=== PATIENT | female | born 1975 | race Caucasian/White ===

== ENCOUNTER → 2020-11-16 08:19 | Outpatient (CLI) | payer BC, OTHER, SELFPAY ==
--- NOTE | ~2020-11-16 | US_ITS ---
EXAMINATION: US pelvic complete DATE: 11/16/2020 09:47 INDICATION: Unspecified abdominal pain TECHNIQUE: Multiple transabdominal and endovaginal sonographic images of the pelvis were obtained. COMPARISON: None. FINDINGS: The uterus measures 9.2 x 4.5 x 5.7 cm. The endometrial complex measures 5 mm. The right ov henrietta is not definitely identified. There is a 14.7 x 6.2 x 14.8 cm cystic area of the right adnexa. On some images, there appear to be small peripheral nodules. The left ovary measures 6.6 x 6.3 x 7.2 cm and contains a 6.2 cm cyst. There is normal vascular flow in the left ovary. There is no free fluid in the pelvis. IMPRESSION: 1. Cystic mass of the right adnexa with possible peripheral nodularity which may be benign or maligna nt. Would recommend further evaluation by pelvic MRI without and with contrast. Reviewed, dictated and finalized at location B. IMPRESSION: 1. Cystic mass of the right adnexa with possible peripheral nodularity which ma y be benign or malignant. Would recommend further evaluation by pelvic MRI with out and with contrast.
--- NOTE | ~2020-11-16 | US_ITS ---
EXAMINATION: US abdomen complete DATE: 11/16/2020 08:53 INDICATION: Generalized abdominal pain TECHNIQUE: Multiple grayscale and Doppler ultrasound images of the abdomen were obtained. COMPARISON: None available FINDINGS: The head, body, and tail of the pancreas are normal. The liver is normal with normal echoge nicity and echotexture. No surface nodularity. Normal hepatopetal flow in the main portal vein. The g allbladder is normal with no abnormal wall thickening, pericholecystic fluid or stones. The normal co mmon bile duct measures 3 mm. There was no sonographic Burris sign. The visualized portions of the ao rta and inferior vena cava are normal. The right kidney measures 8.5 x 4.2 x 5.3 cm. The left kidney measures 8.9 x 5 x 4.3 cm. The kidneys demonstrate normal parenchymal echogenicity. There is no hydronephrosis. The spleen is normal in appe arance and measures 9.5 cm. IMPRESSION: 1. No sonographic correlate for the patient's symptoms. Reviewed, dictated and finalized at location B.
== END ==
PROVIDERS: PCP Nurse Practitioner Family; Visit Provider Nurse Practitioner Family
DX: R10.9 Unspecified abdominal pain (principal)
CPT/HCPCS: 76700; 76856

== ENCOUNTER 2020-11-21 09:23 | Inpatient (IN) | payer BC, OTHER, SELFPAY ==
[2020-11-21] VITALS (16 sets, daily range): BP systolic 98–143; BP diastolic 53–79; PULSE 51–93; RESP 13–24; TEMP 36.6–37.2; O2SAT 87–100; BMI 22.4
--- NOTE | ~2020-11-21 | US_ITS ---
EXAMINATION: US pelvic complete EXAM DATE: 11/21/2020 12:31 INDICATION: Right pelvic mass and pain. Possible gastritis and colitis on CT earlier same date. TECHNIQUE: Pelvic transabdominal sonogram was performed. There are multiple grayscale and Doppler im ages available for interpretation. Comparison is made to prior examination from 11/16/2020. Correlatio n was made with CT scan earlier same date. FINDINGS: Uterus measures 9.1 x 6.4 x 4.6 cm, and is morphologically normal. Endometrial stripe evan sures 11 mm, within normal limits. There is no free pelvic fluid. There are 2 complex cystic masses in the pelvis again noted, one superior to the uterus measuring 14. 4 x 12.6 x 8.7 cm, and one posterior to the uterus measuring 6.8 x 6.7 [address] scan the large r appear to be arising from the right ovary and the smaller from the left. There are several small no dules identified along the wall of both of these. 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 Technologist believed to confirm color flow within both of these. IMPRESSION: 1. 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 WILLOW ANALYST consult for histologic correlation indicated. 2. Correlate with CT report earlier same date. Reviewed, dictated and finalized at location B. IMPRESSION: 1. Two pelvic cystic masses predominantly anechoic but with small regions of w all nodularity, most consistent with cystic ovarian cancers. WILLOW ANALYST consult for hi stologic correlation indicated. 2. Correlate with CT report earlier same date.
--- NOTE | ~2020-11-21 | CT_ITS ---
EXAMINATION: CT abdomen pelvis w con EXAM DATE: 11/21/2020 10:34 INDICATION: Right lower quadrant pain, history ovarian cystic lesion, abnormal pelvic sonogram. TECHNIQUE: Spiral CT of the abdomen and pelvis was performed following intravenous injection of 100 m L Omnipaque 350. Axial, coronal and sagittal images of the abdomen and pelvis were reviewed. The do se-length product (DLP) for this examination was 232.25 mGy-cm. The exposure was tailored according to patient size (auto mA exposure control), and iterative reconstruction (ASIR) was used as additiona l dose reduction technique. Correlation is made to ultrasound on 11/16. FINDINGS: There are 2 cystic regions in the pelvis, largest appears to be arising from the right ovar y, extends into the abdomen, measuring 13 x 9 x 15 cm. Appears thin-walled by CT, but may have some s mall nodularity posteriorly. There is another mass which appears to be arising from the left ovary lo cated posteriorly, containing more proteinaceous fluid and measuring 8 x 7 x 6 cm. Differential diagn osis includes benign or malignant cystic ovarian neoplasms, endometriomas. No fat or calcium to sugge st teratoma. Histologic correlation is indicated. No evidence of lymphadenopathy or metastatic diseas e. The liver, spleen, adrenal glands and pancreas are unremarkable. Gallbladder is unremarkable. No bi liary obstruction. Portal and splenic veins are patent. Kidneys enhance symmetrically. There is no hydronephrosis. The bladder is unremarkable. There are no findings to suggest appendicitis. There is small sliding gastroesophageal hiatal hernia . Gastric antral wall appears edematous, could be phasic but gastritis also possible. Mildly edemato us appearing transverse colon, but also was not distended. Possible mild colitis. No free intraperi toneal gas. The heart is normal in size. There are no pericardial or pleural effusions. The lung bases are unremarkable. Mild thoracolumbar levoscoliosis IMPRESSION: 1. 2 pelvic cystic masses, most likely benign or malignant ovarian neoplasms. No lymphadenopathy or metastatic disease. Recommend histologic correlation. 2. Possible gastritis and transverse colonic colitis. Any acute symptoms? 3. Small hiatal hernia. Reviewed, dictated and finalized at location B.
[2020-11-21 09:48] LABS: Basophils Percent Auto 0.2 % (0.2-1.2); Eosinophils Percent Auto 0.2 % (0-4.4); Hematocrit 38.1 % (37.0-47.0); Immature Granulocyte Absolute 0.03 K/mm3 (0.00-0.031); Immature Granulocyte Percent A 0.3 % (0-0.5); Lymphocytes Absolute Auto 1.79 K/mm3 (0.9-3.2); Mean Corpuscular HGB Conc 34.1 g/dl (32-36); Mean Corpuscular Hemoglobin 30.4 pg (26-34); Mean Corpuscular Volume 89.2 fl (80-100); Mean Platelet Volume 9.7 fl (7.4-10.4); Monocytes Absolute Auto 0.4 K/mm3 (0.1-0.6); Monocytes Percent Auto 3.9 % (2.6-8.5); Neutrophils Absolute Auto 8.3 K/mm3 (1.3-6.7); Neutrophils Percent Auto 78.4 % (45.5-73.1); Platelet Count Result 259 k/mm3 (150-375); Red Blood Count 4.27 M/mm3 (4.2-5.4); Red Cell Distribution Width 11.8 % (11.5-14.5); White Blood Count 10.6 K/mm3 (4.5-10.0)
[2020-11-21] MEDS: ONDANSETRON INJ 4 MG/2 ML VIAL IV PUSH ×2 (09:53→18:52)
[2020-11-21] MEDS: SODIUM CHLORIDE 0.9% IV 1,000 ML 999 ML IV CONT ×2 (09:53→13:49)
[2020-11-21] MEDS: HYDROmorphone HCL INJ (*CRX) 1 MG/ML SYR IV PUSH (09:53)
[2020-11-21] MEDS: FAMOTIDINE 20 MG/2 ML VIAL IV PUSH ×2 (09:54→18:59)
[2020-11-21] MEDS: LORazepam INJ (*CRX) 2 MG/ML VIAL 0.5 MG IV PUSH (09:54)
[2020-11-21 10:01] LABS: Alanine Aminotransferase 15 U/L (4-35); Albumin Level 4.7 g/dL (3.5-5.1); Alkaline Phosphatase 52 U/L (38-126); Anion Gap 13 mmol/L (8-16); Aspartate Amino Transferase 23 U/L (14-36); Bilirubin,Total 1.1 mg/dL (0.2-1.3); Blood Urea Nitrogen 10 mg/dL (7-17); Calcium 9.5 mg/dL (8.4-10.2); Carbon Dioxide 21 mmol/L (22-30); Chloride 103 mmol/L (98-107); Estimated CRCL calculation 69 ml/min; Estimated Glomerular Filt Rate > 60; Glucose 157 mg/dL (65-110); Lipase 67 U/L (23-300); Potassium 3.3 mmol/L (3.4-5.0); Sodium 137 mmol/L (137-145)
[2020-11-21 10:34] LABS: Add Urine Microscopic? YES; Appearance Urine Cloudy (Clear); Bilirubin Urine Negative (Negative); Blood Urine Negative (Negative); Color Urine Yellow (Yellow); Glucose Urine UA Negative (Negative); Ketones Urine 2+ mg/dL (Negative); Leukocyte Esterase Ur 2+ LEU/UL (Negative); Mucus Urine Heavy /lpf; Nitrate Urine Negative (Negative); Protein Urine 1+ mg/dL (Negative); Specific Grav Ur 1.025 (1.001-1.035); Squamous Epithelial Cell Urine Many /hpf (Few); Urobilinogen Urine Negative mg/dL (<2.0); WBC Urine 0-3 /hpf
[2020-11-21] MEDS: MORPHINE SULFATE (*CRX) 4 MG/ML INJ IV PUSH ×2 (10:52→19:03)
[2020-11-21] MEDS: IBUPROFEN IV 800 MG/200 ML 800 MG/200 ML BAG 400 MG IVPB (11:16)
--- NOTE | 2020-11-21 12:00 | ED.GENADULT ---
HPI - General Adult General Chief complaint: Abdominal Pain Stated complaint: ABD PAIN Time Seen by Provider: 11/21/20 09:46 Source: patient, family, RN notes reviewed and old records reviewed Mode of arrival: EMS Limitations: no limitations History of Present Illness HPI narrative: Patient is a 44-year-old female who presents to emergency department for evaluation of right adnexal discomfort that became severe today patient presents noting that she was seen 5 days ago for this had ultrasound showing pelvic mass patient had been doing okay until the pain became more severe today she denies similar occurrence in the past on arrival patient appears uncomfortable she is followed by Dr. Ray. Patient denies any vaginal bleeding discharge urinary bowel symptoms he presents an uncomfortable state has not had anything for pain Related Data Home Medications Medication Instructions Recorded Confirmed No Home Medications 10/18/19 11/21/20 Allergies Allergy/AdvReac Type Severity Reaction Status Date / Time ampicillin Allergy Unknown Rash Verified 11/21/20 13:47 Review of Systems Review of Systems: All systems reviewed & are unremarkable except as noted in HPI and below PMFSH Past Medical History Medical History Miscarriage Pseudophakia of both eyes Surgical History Surgical History History of cryosurgery History of dilation and curettage [place] teeth extracted Family History Family History (Updated 10/18/19 @ 11:38 by Oralia Mason MA) Father Carcinoma of colon Mother Hypertension Grandparent Ovarian cancer Social History Social History Smoking status: Never smoker Alcohol intake: current Drinks per week: 1 Substance use: never Gender identity (if verbalized by the patient): Female Exam Narrative: Exam Narrative: GENERAL: Well-appearing, well-nourished, uncomfortable and in no acute distress. HEAD: Normocephalic, atraumatic. EYES: PERRLA and EOMI. ENT: Nares clear, no rhinorrhea or epistaxis. Mucous membranes moist. CHEST: Clear to auscultation. No respiratory distress. No wheezes rales or rhonchi HEART: Regular rate and rhythm. No murmur heard. Normal peripheral pulses. ABDOMEN: Soft, right adnexal tenderness with voluntary guarding, nondistended EXTREMITIES: Normal range of motion. No edema. SKIN: Warm, dry, no rash. NEURO: No focal deficits. Alert and oriented x3. PSYCH: Normal mood and affect. Course Consultations Consultation #1: Discussed case with Dr. Lozano on-call electrical and instrumentation manager who will review the case Dr. Bird called back and notes she will admit the patient with planned surgery tomorrow Date: 11/21/20 Vital Signs Vital signs: Vital Signs Temperature 98.0 F 11/21/20 09:28 Pulse Rate 57 L 11/21/20 09:28 Respiratory Rate 18 11/21/20 09:28 Blood Pressure 99/66 L 11/21/20 09:28 Pulse Oximetry 100 11/21/20 09:28 Temperature 98.0 F 11/21/20 09:28 Pulse Rate 60 11/21/20 14:16 Respiratory Rate 18 11/21/20 14:16 Blood Pressure 128/79 11/21/20 14:16 Pulse Oximetry 100 11/21/20 14:16 Medical Decision Making MDM Narrative Medical decision making narrative: Patient evaluated the emergency department found to have ovarian masses gynecology was consulted patient is required large amounts of narcotic pain medication she is hemodynamically stable ABCs and vital signs intact. Patient aware of her findings treatment plan diagnosis and consultation. Vital Signs Vital Signs: Vital Signs Temperature 98.0 F 11/21/20 09:28 Pulse Rate 57 L 11/21/20 09:28 Respiratory Rate 18 11/21/20 09:28 Blood Pressure 99/66 L 11/21/20 09:28 Pulse Oximetry 100 11/21/20 09:28 Temperature 98.0 F 11/21/20 09:28 Pulse Rate 60 11/21/20 14:16 Respiratory Rate 18 07
[2020-11-21] MEDS: diazePAM INJ (*CRX) 10 MG/2 ML SYRINGE 5 MG IV PUSH (13:24)
--- NOTE | 2020-11-21 13:33 | PC.NURSE ---
Pt placed on 2 L NC O2 due to O2 sat 75% room air. Pt repositioned and instructed to breathe in through nose and out of mouth. O2 now 100%
--- NOTE | 2020-11-21 16:50 | WPDANESEPP ---
Anes - Eval Pre Procedure Procedure: Operation Date: 11/22/20 14:00 Proposed Procedures p Exploratory Laparotomy,Removal Of Adnexal Masses - Homer Bird MD Date/Time: 11/21/20 16:50 Pre Op Diagnosis: ABD PAIN Patient Data Age: 44 Gender: F Height: 1.63 m Weight: 59 kg Last Vital Signs Temp 98.0 F 11/21/20 09:28 Pulse 53 L 11/21/20 16:18 Resp 20 11/21/20 16:18 BP 128/64 11/21/20 16:18 Pulse Ox 100 11/21/20 16:18 Allergies Allergy/AdvReac Type Severity Reaction Status Date / Time ampicillin Allergy Unknown Rash Verified 11/21/20 13:47 Home Medications Medication Instructions Recorded Confirmed Type No Home Medications 10/18/19 11/21/20 History Laboratory Tests 11/21/20 11/21/20 11/21/20 09:40 09:40 10:16 WBC 10.6 K/mm3 H K/mm3 (4.5-10.0) RBC 4.27 M/mm3 M/mm3 (4.2-5.4) Hgb 13.0 g/dL g/dL (12.0-15.0) Hct 38.1 % % (37.0-47.0) MCV 89.2 fl fl (80-100) MCH 30.4 pg pg (26-34) MCHC 34.1 g/dl g/dl (32-36) RDW 11.8 % % (11.5-14.5) Plt Count 259 k/mm3 k/mm3 (150-375) MPV 9.7 fl fl (7.4-10.4) Immature Gran % (Auto) 0.3 % % (0-0.5) Neut % (Auto) 78.4 % H % (45.5-73.1) Lymph % (Auto) 17.0 % L % (18.3-44.2) [place] % (Auto) 3.9 % % (2.6-8.5) Eos % (Auto) 0.2 % % (0-4.4) Baso % (Auto) 0.2 % % (0.2-1.2) Lymph # (Auto) 1.79 K/mm3 K/mm3 (0.9-3.2) [place] # (Auto) 0.4 K/mm3 K/mm3 (0.1-0.6) Eos # (Auto) 0.0 K/mm3 K/mm3 (0-0.3) Baso # (Auto) 0.0 K/mm3 K/mm3 (0.0-0.1) Abs Immat Gran (auto) 0.03 K/mm3 K/mm3 (0.00-0.031) Absolute Neuts (auto) 8.3 K/mm3 H K/mm3 (1.3-6.7) Absolute Nucleated RBC 0.0 K/mm3 K/mm3 (0.0-0.012) Nucleated RBC % 0.0 % % (0.0-0.2) Sodium 137 mmol/L mmol/L (137-145) Potassium 3.3 mmol/L L mmol/L (3.4-5.0) Chloride 103 mmol/L mmol/L (98-107) Carbon Dioxide 21 mmol/L L mmol/L (22-30) Anion Gap 13 mmol/L mmol/L (8-16) BUN 10 mg/dL mg/dL (7-17) Creatinine 0.80 mg/dL mg/dL (0.7-1.0) Estim Creat Clear Calc 69 ml/min ml/min Estimated GFR > 60 (59 - ) Glucose 157 mg/dL H mg/dL (65-110) Calcium 9.5 mg/dL mg/dL (8.4-10.2) Total Bilirubin 1.1 mg/dL mg/dL (0.2-1.3) AST 23 U/L U/L (14-36) ALT 15 U/L U/L (4-35) Alkaline Phosphatase 52 U/L U/L (38-126) Total Protein 7.0 g/dL g/dL (6.3-8.2) Albumin 4.7 g/dL g/dL (3.5-5.1) Lipase 67 U/L U/L (23-300) Urine Color Yellow (Yellow) Urine Appearance Cloudy H (Clear) Urine pH 6.0 (5.0-9.0) Ur Specific [place] 1.025 (1.001-1.035) Urine Protein 1+ mg/dL H mg/dL (Negative) Urine Glucose (UA) Negative mg/dL mg/dL (Negative) Urine Ketones 2+ mg/dL H mg/dL (Negative) Ur Blood (Man) Negative (Negative) Urine Nitrate Negative (Negative) Urine Bilirubin Negative (Negative) Urine Urobilinogen Negative mg/dL mg/dL (<2.0) Leukocyte Esterase Rfl 2+ SPEEDY/UL H SPEEDY/UL (Negative) Urine RBC 3-5 /hpf H /hpf (0-2) Urine WBC 0-3 /hpf /hpf Ur Squamous Epith Cells Many /hpf H /hpf (Few) Urine Mucus Heavy /lpf H /lpf Patient hx anesthesia problems: none Family hx anesthesia problems: none [facility] Past Medical History Medical History Mass of left ovary Mass of right ovary Miscarriage Pseudophakia of both eyes Surgical History Surgical History History of cryosurgery History of dila
--- NOTE | 2020-11-21 18:15 | ADMGEN ---
This patient, Wanda Castro, was admitted to OB 2nd Floor Room 279-00. Patient/family oriented to hospital policies and general routines including ID bracelet, bed and alarms, visiting hours, pain management, procedures, bathroom and other care routines, personal items, smoking policy, room service/diet, and visiting hours. Information on how to activate the Rapid Response Team has been discussed. Patient/Family are encouraged to report perceived risks to care and to ask questions if they do not understand what they are told or what they should do.
[2020-11-21] MEDS: LACTATED RINGERS 1,000 ML 125 ML IV CONT (19:00)
[2020-11-21] MEDS: KETOROLAC 30 MG/ML VIAL (*BKC) IV PUSH (19:13)
[2020-11-21] MEDS: LORazepam INJ (*CRX) 2 MG/ML VIAL 1 MG IV PUSH (19:24)
--- NOTE | 2020-11-21 20:20 | PM.IMHP ---
H&P: HPI History of Present Illness Date/Time: 11/21/20 20:20 Patient presented to ED with complaints of severe abdominal pain. She had a previous abdominal and pelvic ultrasound on November 16. The pelvic ultrasound showed a 14 cm complex right adnexal mass and a 6 cm left ovarian cyst. No concerning lymphadenopathy or other abnormal masses. She states that pain became severe and sharp today. She felt like she felt something move earlier today and then severe pain. There was no sign of torsion on imaging today. In the ED she required large amount of pain medication to help her pain. She also had nausea today. She was evaluated in the ED and had diffuse abdominal tenderness adn fullness in lower abdomen. She was informed of the possible etiologies of the bilateral ovarian cysts to include malignancy and due the concern for that being a possibility then she would usually be referred to a prop and effects designer oncologist for the surgery. I attempted to contact prop and effects designer oncologist group at [facility] to determine if they could get her in sooner for evaluation but due to patient's discomfort and no response then informed her that her option would be to perform the exploratory laparotomy and removal of cysts and if the pathology does show malignancy then she would need further evaluation by prop and effects designer onocologist and or subsequent further surgery. She agreed to being admitted and performing the laparotomy and removal of adnexal cyst, possibly needing to remove both ovaries which would render her menopausal. Her questions were answered. Chief Complaint: Abdominal pain Review of Systems Review of Systems: All systems reviewed & are unremarkable except as noted in HPI and below Cardiovascular: Cardiovascular: Reports no additional cardiovascular complaints, Denies chest pain and Denies dyspnea Respiratory: Respiratory: Reports no additional respiratory complaints and Denies dyspnea Gastrointestinal: Gastrointestinal: Reports abdominal pain, Denies change in bowel habits, Denies diarrhea and Reports nausea Genitourinary: Genitourinary: Reports pelvic pain Musculoskeletal: Musculoskeletal: Reports back pain Integumentary/Breasts: Skin/Breast: Reports system reviewed and no additional complaints, except as docu Neurologic: Reports system reviewed and no additional complaints, except as documented PMF Past Medical History Medical History Mass of left ovary Mass of right ovary Miscarriage Pseudophakia of both eyes Surgical History Surgical History History of cryosurgery History of dilation and curettage [place] teeth extracted Family History Family History (Updated 11/21/20 @ 19:41 by Christy Ochoa RN) Father Carcinoma of colon Mother Hypertension History of blood clots Grandparent Ovarian cancer Social History Social History Smoking status: Never smoker Alcohol intake: current Drinks per week: 1 Substance use: never Gender identity (if verbalized by the patient): Female Spiritual care concerns: No Meds Home Medications and Allergies Home Medications Medication Instructions Recorded Confirmed Type [id number] K 1 tablet PO DAILY 11/21/20 11/21/20 History [Adults Multivitamin] Allergies Allergy/AdvReac Type Severity Reaction Status Date / Time ampicillin Allergy Unknown Rash Verified 11/21/20 13:47 Vital Signs Vital Signs - 24 hr 11/21/20 09:28 11/21/20 09:58 11/21/20 11:13 Temperature 98.0 F Pulse Rate 57 L 63 59 L Respiratory Rate 18 15 18 Blood Pressure 99/66 L 124/73 124/68 Pulse Oximetry 100 100 97 11/21/20 12:31 11/21/20 13:34 11/21/20 14:02 Temperature Pulse Rate 93 51 L 63 Respiratory Rate 15 13 20 Blood Pressure 103/61 140/76 126/76 Pulse Oximetry 100 100 11/21/20 14:12 11/21/20 14:16 11/21/20 15:45 Temperature P
[2020-11-22] VITALS (15 sets, daily range): BP systolic 98–127; BP diastolic 50–69; PULSE 60–93; RESP 10–18; TEMP 36.6–37.7; O2SAT 96–100
[2020-11-22] MEDS: MORPHINE SULFATE (*CRX) 4 MG/ML INJ IV PUSH (00:13)
[2020-11-22] MEDS: LACTATED RINGERS 1,000 ML 125 ML IV CONT ×2 (00:14→09:09)
[2020-11-22 05:09] LABS: Basophils Percent Auto 0.1 % (0.2-1.2); Eosinophils Percent Auto 0.3 % (0-4.4); Hematocrit 29.7 % (37.0-47.0); Hemoglobin 10.1 g/dL (12.0-15.0); Immature Granulocyte Absolute 0.03 K/mm3 (0.00-0.031); Immature Granulocyte Percent A 0.3 % (0-0.5); Lymphocytes Absolute Auto 2.12 K/mm3 (0.9-3.2); Lymphocytes Percent Auto 21.5 % (18.3-44.2); Mean Corpuscular Hemoglobin 30.4 pg (26-34); Mean Corpuscular Volume 89.5 fl (80-100); Monocytes Absolute Auto 0.8 K/mm3 (0.1-0.6); Monocytes Percent Auto 7.7 % (2.6-8.5); Neutrophils Absolute Auto 6.9 K/mm3 (1.3-6.7); Neutrophils Percent Auto 70.1 % (45.5-73.1); Platelet Count Result 210 k/mm3 (150-375); Red Blood Count 3.32 M/mm3 (4.2-5.4); Red Cell Distribution Width 11.9 % (11.5-14.5); White Blood Count 9.9 K/mm3 (4.5-10.0)
[2020-11-22 05:28] LABS: Alanine Aminotransferase 11 U/L (4-35); Albumin Level 3.4 g/dL (3.5-5.1); Alkaline Phosphatase 34 U/L (38-126); Anion Gap 6 mmol/L (8-16); Aspartate Amino Transferase 17 U/L (14-36); Bilirubin,Total 0.9 mg/dL (0.2-1.3); Blood Urea Nitrogen 4 mg/dL (7-17); Calcium 8.4 mg/dL (8.4-10.2); Carbon Dioxide 22 mmol/L (22-30); Chloride 108 mmol/L (98-107); Estimated CRCL calculation 78 ml/min; Estimated Glomerular Filt Rate > 60; Glucose 89 mg/dL (65-110); Potassium 3.5 mmol/L (3.4-5.0); Sodium 136 mmol/L (137-145)
[2020-11-22 06:28] LABS: Beta HCG Quantitative < 2.39 mIU/ML
--- NOTE | 2020-11-22 08:00 | PC.NURSE ---
PT introductions made and plan of care discussed per pre op aircraft engine specialist surgery, pain management, NPO, daily care activities. PT verbalized understanding. PT recipient of such instructions and no barriers to learning identified. PT received instructions per one to one discussion and demonstration through out the shift.
--- NOTE | 2020-11-22 08:32 | PM.GYNPNOP ---
GENERAL INTERNIST AND PHYSICIAN LEADER - A/P Assessment and plan (1) Bilateral ovarian cysts: Code(s): N83.201 - Unspecified ovarian cyst, right side; N83.202 - Unspecified ovarian cyst, left side Status: Acute Assessment and Plan: Plan to proceed with ovarian/adnexal cyst removal today. Procedure explained to her again. Questions answered. Postoperative Procedures: Procedures Operation Date: 11/22/20 14:00 <No data on this case meets the specified criteria> Time Spent With Patient Time: Total time spent is greater than 50% in coordination of care (as documented) at patient's floor/unit and/or counseling patient: Time with patient: less than 15 minutes GENERAL INTERNIST AND PHYSICIAN LEADER- PN:Subj Post-Op Subjective Date/time seen: 11/22/20 08:32 She states pain and nausea improved with medication. Exam Const: General: no acute distress Eyes: General: appearance normal, both eyes and all related structures Resp: Effort & Inspection: normal respiratory effort Auscultation: clear to auscultation bilaterally Cardio: Rate: regular rate Rhythm: regular rhythm GI: Other: mass palpated 6cm above umbilicus mobile, mild tenderness, no guarding no rebound Skin: General skin exam: normal color Extrem: General: normal to inspection GENERAL INTERNIST AND PHYSICIAN LEADER - PN: Obj Data Vital Signs Vital Signs: Vital Signs - 24 hr 11/21/20 09:28 11/21/20 09:58 11/21/20 11:13 Temperature 98.0 F Pulse Rate 57 L 63 59 L Respiratory Rate 18 15 18 Blood Pressure 99/66 L 124/73 124/68 Pulse Oximetry 100 100 97 11/21/20 12:31 11/21/20 13:34 11/21/20 14:02 Temperature Pulse Rate 93 51 L 63 Respiratory Rate 15 13 20 Blood Pressure 103/61 140/76 126/76 Pulse Oximetry 100 100 11/21/20 14:12 11/21/20 14:16 11/21/20 15:45 Temperature Pulse Rate 64 60 56 L Respiratory Rate 19 18 19 Blood Pressure 115/72 128/79 125/70 Pulse Oximetry 100 100 100 11/21/20 16:18 11/21/20 18:06 11/21/20 18:30 Temperature 97.8 F 98.0 F Pulse Rate 53 L 57 L 67 Respiratory Rate 20 18 18 Blood Pressure 128/64 143/67 H 114/54 L Pulse Oximetry 100 99 99 11/21/20 18:45 11/21/20 20:00 11/21/20 20:30 Temperature Pulse Rate Respiratory Rate 24 H 24 H Blood Pressure Pulse Oximetry 99 87 L 100 11/21/20 23:15 11/22/20 00:10 11/22/20 03:32 Temperature 98.9 F 98.9 F Pulse Rate 75 60 72 Respiratory Rate 18 18 16 Blood Pressure 98/53 L 110/57 L 98/56 L Pulse Oximetry 98 Intake/Output Intake/Output: Intake & Output 11/19/20 11/20/20 11/21/20 11/22/20 23:59 23:59 23:59 23:59 Intake Total 2400 1390 Output Total 1150 Balance 2400 240 Meds/Results Medications: Active Medications Generic Name Dose Route Start Last Admin Trade Name Freq PRN Reason Stop Dose Admin Famotidine 20 mg 11/21/20 21:00 11/21/20 18:59 Famotidine 20 Mg/2 Ml Vial IV PUSH 20 mg Q12HR PIPO Administration Acetaminophen 1,000 mg in 100 mls @ 400 mls/hr 11/21/20 15:23 11/22/20 03:39 Ofirmev 1,000 Mg Ivpb IVPB 11/22/20 15:24 Infused Q6H PRN Infusion Mild Pain (1-3) or Fever Lactated Ringer's 1,000 mls @ 125 mls/hr 11/21/20 15:25 11/22/20 00:14 Lr - Lactated Ringers Iv IV CONT 125 mls/hr .Q8H PIPO Administration Lorazepam 1 mg 11/21/20 21:00 11/21/20 19:24 Lorazepam Inj (*Crx) 2 Mg/Ml Vial IV PUSH 1 mg BID PRN Administration Anxiety Morphine Sulfate 4 mg 11/21/20 15:23 11/22/20 00:13 Morphine Sulfate (*Crx) 4 Mg/Ml Inj IV PUSH 4 mg Q2H PRN Administration Pain Rated 7-10 Ondansetron HCl 4 mg 11/21/20 15:23 11/21/20 18:52 Ondansetron Inj 4 Mg/2 Ml Vial IV PUSH 4 mg Q4H PRN Administration Nausea Radiology Results: ITS Impressions Abdomen/Pelvis CT 11/21/20 10:35 IMPRESSION: 1. 2 pelvic cystic masses, most likely benign or malignant ovarian neoplasms. No lymphadenopathy or metastatic disease. Recommend histologic correlation. 2. Possible gastritis and transverse colonic colitis. Any acute symptoms? 3. S
[2020-11-22] MEDS: FAMOTIDINE 20 MG/2 ML VIAL IV PUSH ×2 (09:56→20:59)
--- NOTE | 2020-11-22 12:35 | PC.NURSE ---
PT taken to OR via bed accompanied by preop nurses. PT alert and awake and oriented to surroundings. SBAR faxed to preop. will be sent over shortly when he returns to unit.
[2020-11-22] MEDS: LACTATED RINGERS 1,000 ML 30 ML IV CONT ×2 (13:00→15:38)
--- NOTE | 2020-11-22 13:07 | WPDANESEPPF ---
Anes - Initial Pre Proc Eval Procedure: Operation Date: 11/22/20 14:00 Proposed Procedures p Exploratory Laparotomy,Removal Of Adnexal Masses - Homer Bird MD Date/Time: 11/22/20 13:07 Surgeon: Homer Bird MD Pre Op Diagnosis: ovarian mass Patient Data Age: 44 Gender: F Height: 1.63 m Weight: 59.1 kg Last Vital Signs Temp 37.7 C H 11/22/20 12:00 Pulse 66 11/22/20 12:00 Resp 16 11/22/20 12:00 BP 107/60 11/22/20 12:00 Pulse Ox 100 11/22/20 12:00 Allergies Allergy/AdvReac Type Severity Reaction Status Date / Time ampicillin Allergy Unknown Rash Verified 11/22/20 13:02 Home Medications Medication Instructions Recorded Confirmed Type qbnbqikdqikv-bcd-lewa-FA-vit K 1 tablet PO DAILY 11/21/20 11/21/20 History [Adults Multivitamin] cyanocobalamin (vitamin B-12) 2,000 mcg PO DAILY 11/22/20 11/22/20 History [Vitamin B-12] Laboratory Tests 11/22/20 11/22/20 11/22/20 04:42 04:42 04:42 WBC 9.9 K/mm3 K/mm3 (4.5-10.0) RBC 3.32 M/mm3 L M/mm3 (4.2-5.4) Hgb 10.1 g/dL L g/dL (12.0-15.0) Hct 29.7 % L % (37.0-47.0) MCV 89.5 fl fl (80-100) MCH 30.4 pg pg (26-34) MCHC 34.0 g/dl g/dl (32-36) RDW 11.9 % % (11.5-14.5) Plt Count 210 k/mm3 k/mm3 (150-375) MPV 10.0 fl fl (7.4-10.4) Immature Gran % (Auto) 0.3 % % (0-0.5) Neut % (Auto) 70.1 % % (45.5-73.1) Lymph % (Auto) 21.5 % % (18.3-44.2) O'Brien % (Auto) 7.7 % % (2.6-8.5) Eos % (Auto) 0.3 % % (0-4.4) Baso % (Auto) 0.1 % L % (0.2-1.2) Lymph # (Auto) 2.12 K/mm3 K/mm3 (0.9-3.2) O'Brien # (Auto) 0.8 K/mm3 H K/mm3 (0.1-0.6) Eos # (Auto) 0.0 K/mm3 K/mm3 (0-0.3) Baso # (Auto) 0.0 K/mm3 K/mm3 (0.0-0.1) Abs Immat Gran (auto) 0.03 K/mm3 K/mm3 (0.00-0.031) Absolute Neuts (auto) 6.9 K/mm3 H K/mm3 (1.3-6.7) Absolute Nucleated RBC 0.0 K/mm3 K/mm3 (0.0-0.012) Nucleated RBC % 0.0 % % (0.0-0.2) Sodium Potassium Chloride Carbon Dioxide Anion Gap BUN Creatinine Estim Creat Clear Calc Estimated GFR Glucose Calcium Total Bilirubin AST ALT Alkaline Phosphatase Total Protein Albumin CA 125 Antigen Pending Serum HCG, Qual Cancelled Beta HCG, Quant 11/22/20 04:42 WBC RBC Hgb Hct MCV MCH MCHC RDW Plt Count MPV Immature Gran % (Auto) Neut % (Auto) Lymph % (Auto) O'Brien % (Auto) Eos % (Auto) Baso % (Auto) Lymph # (Auto) O'Brien # (Auto) Eos # (Auto) Baso # (Auto) Abs Immat Gran (auto) Absolute Neuts (auto) Absolute Nucleated RBC Nucleated RBC % Sodium 136 mmol/L L mmol/L (137-145) Potassium 3.5 mmol/L mmol/L (3.4-5.0) Chloride 108 mmol/L H mmol/L (98-107) Carbon Dioxide 22 mmol/L mmol/L (22-30) Anion Gap 6 mmol/L L mmol/L (8-16) BUN 4 mg/dL L D mg/dL (7-17) Creatinine 0.70 mg/dL mg/dL (0.7-1.0) Estim Creat Clear Calc 78 ml/min ml/min Estimated GFR > 60 (59 - ) Glucose 89 mg/dL mg/dL (65-110) Calcium 8.4 mg/dL mg/dL (8.4-10.2) Total Bilirubin 0.9 mg/dL mg/dL (0.2-1.3) AST 17 U/L U/L (14-36) ALT 11 U/L U/L (4-35) Alkaline Phosphatase 34 U/L L U/L (38-126) Total Protein 6.0 g/dL L g/dL (6.3-8.2) Albumin 3.4 g/dL L g/dL (3.5-5.1) CA 125 Antigen Serum HCG, Qual Beta HCG, Quant < 2.39 mIU/ML mIU/ML Patient hx anesthesia problems: none Family hx anesthesia problems:
--- NOTE | 2020-11-22 14:15 | WPDHPUPDATE1 ---
History and Physical Update Update Date/Time: 11/22/20 14:15 History and Physical has been reviewed, including an updated exam of the patient. There are NO changes in the patient's condition. Risks, benefits, and alternatives have been discussed and questions answered. Patient agrees to proceed with procedure.
[2020-11-22] MEDS: CLINDAMYCIN 900 MG/D5W 50 ML 900 MG/50 ML PIGGYBACK 50 MG IVPB (14:40)
[2020-11-22] MEDS: fentaNYL CITRATE INJ (*CRX) 100 MCG/2 ML VIAL 25 MCG IV PUSH ×8 (15:45→17:00)
--- NOTE | 2020-11-22 16:04 | W.PM.PROC2 ---
Procedure Note - Detailed Date of Procedure 11/22/20 Pre-op Diagnosis Bilateral adnexal mass Post-op Diagnosis other (1. Endometriosis) Procedure Performed 1.Exploratory laparotomy 2. Bilateral salpingo oophorectomy with removal of bilateral cyst. Surgeon Homer Bird MD Anesthesia general Indications Patient is a 44-year-old female presented to the emergency department yesterday with acute pain and nausea and imaging showed a 14 cm cyst on the right and a 6 cm cyst on the left suspicion for malignancy. Due to patient's discomfort it was recommended for removal of the adnexal cyst she was informed of the possibility of needing to remove one or both ovaries. She is informed if it does come back as showing cancer that she may need future more invasive procedures. Findings The right ovary which measured approximately 14 cm and fallopian tube were black there was no necrosis. The weight of the right adnexa was 1238 g. The right adnexa was twisted twice. The left ovary was a large cyst that comprised all of the ovarian tissue no ovarian tissue could be palpated. There was some signs of endometriosis on the left ovary and also multiple endometriosis implants on the back of the uterus and cul-de-sac. There was also a smaller cystic area on the outer of the large left ovarian cyst which took of most or all of ovary. Description of Procedure After informed consent was obtained patient was taken to the operating room and general endotracheal anesthesia was administered. She was placed in supine position and prepped and draped in sterile fashion. IV clindamycin was given prior to the procedures start. A Pfannenstiel skin incision was made with the scalpel. The subcutaneous tissue was dissected down bluntly. The fascia was incised in the midline. The fascia was extended bilaterally using Orellana scissors. The fascia was from the rectus muscle superiorly bluntly and with cautery. The fascia inferiorly was dissected from the rectus tissue bluntly and using cautery. The mid line of the abdomen was identified. The peritoneum was grasped with clamps and was entered. The mildly discolored peritoneal fluid which was serosanguineous was suction in a collection syringe and will be sent for histology. A lap was placed inside to retract some of the intestines. The large mass was visualized. The area was palpated and the uterus appeared normal the mass appeared large and dark it was mobile. Was able to mobilize the mass through the incision. Prior to doing this the mass was palpated and noted to be free of any adhesions. Once the mass was mobilized it was seen to be torsed twice around the fallopian tube and ovarian ligament. The right adnexa was then untwisted. The right infundibulopelvic ligament was then clamped and ligated with LigaSure the fallopian tube and ovarian ligament were also clamped and ligated with the LigaSure hemostasis was noted. The specimen was handed off to be sent to pathology. Attention was then turned to the left ovary the left ovary was enlarged approximately 6 cm there was a cyst on the outer part of this cyst there appeared to be some endometriosis on a portion of this left cyst could not identify normal ovarian tissue. There were multiple implants of endometriosis on the posterior uterus and cul-de-sac. There were no adhesions in these areas. Due to the concern of possible malignancy and is since could not identify normal ovarian tissue then the decision was made to remove the left ovary and fallopian tube. The infundibulopelvic ligament on the left side was cauterized and the fallopian tube and ovary were cauterized and ligated with the LigaSure. Hemostasis was noted at the site. The pelvis was irrigated. The pedicles were inspected again and noted to be hemostatic. The laparotomy sponge was removed. the sponge count was correct. The peritoneum was closed with 3 O Vicryl in several [id number] fashion. Th
[2020-11-22] MEDS: ONDANSETRON INJ 4 MG/2 ML VIAL IV PUSH (16:51)
--- NOTE | 2020-11-22 17:35 | PC.NURSE ---
PT returned from PACU via bed accompanied by spouse. PT alert and awake and talking. PT oriented back to her room and surrounding area. 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 PT received such instructions per one to one discussion, and demonstration. PT has no barriers to learning and she and her spouse both recipients of such instructions. Pt verbalized understanding of such care.
[2020-11-22] MEDS: DEXTROSE 5%/0.45% SOD CHL 1,000 ML 125 ML IV CONT (18:10)
[2020-11-22] MEDS: KETOROLAC 30 MG/ML VIAL (*BKC) IV PUSH ×2 (18:11→23:47)
[2020-11-22] MEDS: HYDROcodone/acetaminophen (*CRX) 5-325 MG TABLET 1 TAB PO ×3 (18:12→23:46)
[2020-11-22] MEDS: SIMETHICONE 80 MG TAB.CHEW PO ×2 (18:12→23:46)
[2020-11-23 03:44] VITALS: BP 114/52; PULSE 91; RESP 18; TEMP 36.7
[2020-11-23 08:00] VITALS: BP 117/60; PULSE 63; RESP 18; TEMP 36.6; O2SAT 100
[2020-11-23] MEDS: SIMETHICONE 80 MG TAB.CHEW PO (08:17)
[2020-11-23] MEDS: KETOROLAC 30 MG/ML VIAL (*BKC) IV PUSH (08:17)
[2020-11-23] MEDS: HYDROcodone/acetaminophen (*CRX) 5-325 MG TABLET 1 TAB PO ×2 (08:17→12:13)
--- NOTE | 2020-11-23 10:30 | PC.NURSE ---
Self care discharge instructions given to pt. including when to return to see Dr. Bird. Pt. verbalized understanding. No questions or concerns voiced. at side.
[2020-11-23 11:52] VITALS: BP 102/62; PULSE 61; RESP 16; TEMP 37.1; O2SAT 100
--- NOTE | 2020-11-23 12:17 | WPDANESPN ---
Anes - Prog Note Post-Op Date/Time: 11/23/20 12:17 Cardiovascular status: normal Respiratory status: normal Airway patency: baseline Mental status: baseline Post-Op hydration status: normal Vital Signs: Last Vital Signs Temp 37.1 C 11/23/20 11:52 Pulse 61 11/23/20 11:52 Resp 16 11/23/20 11:52 BP 102/62 11/23/20 11:52 Pulse Ox 100 11/23/20 11:52 Pain Score (VAS): 3 I/O: Intake & Output 11/22/20 11/23/20 11/23/20 23:59 07:59 15:59 Intake Total 1300 2200 600 Output Total 1150 3500 1100 Balance 150 -1300 -500 Laboratory Tests 11/22/20 04:42 11/22/20 04:42 Post-procedural complaints: none Patient Feedback: Patient satisfied with anesthetic care.
[2020-11-24 23:48] LABS: CA-125 30 U/mL (<35)
--- NOTE | 2020-12-26 09:53 | PM.OBDSVD ---
DS: Admitting Diagnosis Admitting Diagnosis Ovarian cyst. Pelvic pain DS: Discharge Diagnosis Discharge Diagnosis (1) Ovarian torsion: Code(s): N83.519 - Torsion of ovary and ovarian pedicle, unspecified side Status: Acute (2) Bilateral ovarian cysts: Code(s): N83.201 - Unspecified ovarian cyst, right side; N83.202 - Unspecified ovarian cyst, left side Status: Acute OB - DS: Summary Hospital Course Hospital Course: Patient was admitted to the floor for observation from the emergency department. She had a plan to do a laparotomy for the next scheduled day. She was admitted and given IV pain medicine. She had an exploratory laparotomy on 11/22 . Findings from the exploratory laparotomy was a right ovarian torsion and bilateral ovarian cyst. She did get bilateral oophorectomy. Postoperatively patient did well on postop days she was tolerating regular food. She had adequate pain control and was ambulating and did have flatus. She was discharged to home on 11/24. The pathology from the bilateral ovarian cysts was pending. OB Procedures : None OB Procedures Intrapartum: Other OB Procedures: : None Peripartum Data Procedures: Procedures Operation Date: 11/22/20 14:00 Actual Procedure Side Surgeon p Exploratory Laparotomy, Bilateral Salpingo-oophorectomy Bilateral Homer Bird MD Status at Discharge Functional status at discharge: independent ambulation Time Spent with Patient Time attestation: Total time spent providing and/or coordinating discharge services: Exam Const: General: no acute distress Orientation/consciousness: oriented to person HENMT: Head: normal to inspection Eyes: General: appearance normal, both eyes and all related structures Resp: Effort & Inspection: normal respiratory effort Auscultation: clear to auscultation bilaterally Cardio: Rate: regular rate Rhythm: regular rhythm GI: Other: incision healing well Skin: General skin exam: normal color Neuro: General: oriented to person, oriented to place and oriented to time DS: Data Data Completed and Pending Completed studies during hospitalization: Pending at discharge 11/22/20 15:00 Surgical [PTH] Routine Discharge Plan Discharge Attending physician on discharge: Homer Bird Consulting providers: Ky Dailey ; Eliseo Villalobos Discharging Clinician: Homer Bird Anticipated Discharge Date/Time: 11/23/20 10:32 Patient Disposition: Home, Self-Care Activity: may shower, may drive after 2 weeks, pelvic rest and other - see discharge instructions Diet: regular Wound Care Instructions: incision open to air Discharge Instructions: Some Complications to Watch for: ? Excessive incisional or vaginal drainage (more than on pad an hour). Additional Instructions: ? Expect some vaginal spotting for 2-4 days. ? Nothing vaginally (i.e. douching, intercourse, tampons) until follow up visit. Patient Instructions: Antibiotic Form Follow-up/Referrals: Homer Bird MD [Physician] - Discharge Medications: Discontinued Adults Multivitamin 18 mg iron-400 mcg-25 mcg Tablet 1 tablet PO DAILY RF: 0 cyanocobalamin (vitamin B-12) [Vitamin B-12] 1,000 mcg Tablet 2,000 mcg PO DAILY RF: 0 No Action multivitamin [Daily Multi-Vitamin] Tablet 1 tablet PO DAILY RF: 0 vitamin B complex [B Complex-Vitamin B12] Tablet 1 tablet PO DAILY RF: 0 Date of admission: 11/22/20 19:17 Primary Care Provider: Nydia,Fidelia López Admitting Provider: Homer Bird Attending physician on admission: Homer Bird Condition: Improved
== END 2020-11-23 12:32 | disposition home or self-care (01) | DRG 743 ==
LOC: ANHED 16:04 → ANHOB2 17:17
PROVIDERS: Emergency Medicine Emergency Medical Services; Admitting Provider Obstetrics & Gynecology; Emergency Provider Emergency Medicine; PCP Nurse Practitioner Family; Visit Provider Obstetrics & Gynecology
PROC: 0UT94ZZ Resection of Uterus, Percutaneous Endoscopic Approach (ICD-10-PCS; principal; 2020-11-22 14:00)
DX: N83.202 Unspecified ovarian cyst, left side (principal); N83.201 Unspecified ovarian cyst, right side; N83.511 Torsion of right ovary and ovarian pedicle; N80.1 Endometriosis of ovary; N80.0 Endometriosis of uterus
CPT/HCPCS: 36415; 74177; 76856; 80053; 81001; 81025; 83690; 84702; 85025; 86304; 88104; 88108; 88305; 88307; 96361; 96365; 96367; 96375; 96376; 99285; A9270; G0378; J0131; J1170; J1741; J1885; J2060; J2250; J2270; J2405; J3010; J3360; J7030; J7120; Q9967

== ENCOUNTER → 2021-03-14 17:46 | Outpatient (CLI) | payer BC, OTHER, SELFPAY ==
--- NOTE | ~2021-03-14 | MM_ITS ---
EXAMINATION: MM screening [facility] w anthony HISTORY: Screening mammogram TECHNIQUE: Craniocaudal and mediolateral oblique 3-D tomosynthesis images were obtained and synthetic 2-D images were generated. CAD analysis was submitted and interpreted. COMPARISON: 12/01/2018 BREAST PARENCHYMAL COMPOSITION: The breasts are extremely dense, which lowers the sensitivity of mamm ography. FINDINGS: There is no evidence of suspicious mass, calcification, or architectural distortion to sugg est malignancy in either breast. There has been no suspicious interval change. IMPRESSION: 1. No mammographic evidence of malignancy. 2. Recommend routine screening mammography in one year. BI-RADS Category 1: Negative Reviewed, dictated and finalized at location A. ING AND SPEECH ASSISTANT
== END ==
PROVIDERS: PCP Nurse Practitioner Family; Visit Provider Obstetrics & Gynecology
DX: Z12.31 Encounter for screening mammogram for malignant neoplasm of breast (principal)
CPT/HCPCS: 77063; 77067

== ENCOUNTER → 2021-12-25 16:02 | Outpatient (CLI) | payer BC, OTHER, SELFPAY ==
--- NOTE | ~2021-12-25 | DEXA_ITS ---
Bone Density Report Name: RICHARD VOGEL Age: 46 Sex: Female Ethnicity: White Date of : 1975 Indication: postmenopausal; hysterectomy; Referring Provider: EDUARDO MORFIN Study: Bone densitometry was performed. Exam Date: December 25, 2021 Accession number: [id number] Bone Density: Region BMD T-score Z-score Classification AP Spine (L1-L4) 0.906 -1.3 -0.9 Osteopenia Femoral Neck (Left) 0.671 -1.6 -1.2 Osteopenia Total Hip (Left) 0.778 -1.3 -1.1 Osteopenia Femoral Neck (Right) 0.639 -1.9 -1.5 Osteopenia Total Hip (Right) 0.771 -1.4 -1.1 Osteopenia Total Hip Mean 0.775 -1.4 -1.1 Osteopenia World Health Organization criteria for BMD impression classify patients as: Normal (T-score at or above -1.0), Osteopenia (T-score between -1.0 and -2.5), or Osteoporosis (T-score at or below -2.5). 10-year Fracture Risk: FRAX not reported because: Treated for osteoporosis Clinical Information Provided by Patient: Is being treated for osteoporosis Has used the following medications: HRT (i.e. estrogen/hormone therapy), Vitamin D, Calcium, HRT PATCH, MTV Has the following medical conditions: Hysterectomy Patient maximum height was 64.0 Menopause Age: 45 No regular weight bearing exercise Drinks caffeinated beverages Onset of menses at age 15 Number of children 1 Impression: The patient has low bone mass, based on the Right Femoral Neck T-score. Discussion: It is important to ask patients whether they are taking their medications and to encourage continued and appropriate compliance with their osteoporosis therapies to reduce fracture risk. It is also important to review their risk factors and encourage appropriate calcium and vitamin D intakes, exercise, fall prevention and other lifestyle measures. Follow-Up: Consider a repeat BMD and Vertebral Fracture Assessment (VFA) exam in 2 years or sooner if medically necessary, to reassess this patient's status. Reported by: [facility] on 12/25/2021 4:27:00 PM. Reviewed, dictated and finalized at location AMilly NO
== END ==
PROVIDERS: PCP Nurse Practitioner Family; Visit Provider Obstetrics & Gynecology
DX: Z78.0 Asymptomatic menopausal state (principal); M85.88 Other specified disorders of bone density and structure, other site; M85.852 Other specified disorders of bone density and structure, left thigh; M85.851 Other specified disorders of bone density and structure, right thigh
CPT/HCPCS: 77080

== ENCOUNTER 2022-01-26 07:52 | Outpatient (CLI) | payer BC, OTHER, SELFPAY ==
[2022-01-26 09:01] LABS: Vitamin D 25 Hydroxy 52.1 ng/mL
== END 2022-01-26 07:53 | disposition home or self-care (01) ==
LOC: ANHLAB 07:53
PROVIDERS: PCP Nurse Practitioner Family; Visit Provider Obstetrics & Gynecology
DX: M85.80 Other specified disorders of bone density and structure, unspecified site (principal)
CPT/HCPCS: 36415; 82306

== ENCOUNTER → 2022-07-04 15:04 | Outpatient (CLI) | payer BC, OTHER, SELFPAY ==
--- NOTE | ~2022-07-04 | MM_ITS ---
EXAMINATION: MM screening [facility] BI w anthony HISTORY: Screening mammogram TECHNIQUE: Craniocaudal and mediolateral oblique 3-D tomosynthesis images were obtained and synthetic 2-D images were generated. CAD analysis was submitted and interpreted. COMPARISON: 03/14/2021, 12/01/2018 BREAST PARENCHYMAL COMPOSITION: The breasts are extremely dense, which lowers the sensitivity of mamm ography. FINDINGS: No suspicious mass, calcification, or architectural distortion are identified in either jennifer ast to suggest malignancy. There has been no suspicious interval change. IMPRESSION: 1. No mammographic evidence of malignancy. 2. Recommend routine screening mammography in one year. BI-RADS Category 1: Negative Reviewed, dictated and finalized at location A. ECONOMIST
== END ==
PROVIDERS: PCP Nurse Practitioner Family; Visit Provider Obstetrics & Gynecology
DX: Z12.31 Encounter for screening mammogram for malignant neoplasm of breast (principal)
CPT/HCPCS: 77063; 77067

== ENCOUNTER 2023-11-18 14:03 | Outpatient (CLI) | payer BC, OTHER, SELFPAY ==
--- NOTE | ~2023-11-18 | MM_ITS ---
EXAMINATION: MM screening [facility] w anthony HISTORY: Screening TECHNIQUE: Craniocaudal and mediolateral oblique 3-D tomosynthesis images were obtained and synthetic 2-D images were generated. CAD analysis was submitted and interpreted. COMPARISON: Comparison to multiple prior studies sequentially, with oldest reviewed study dated 09/2018. BREAST PARENCHYMAL COMPOSITION: Dense: The breasts are extremely dense, which lowers the sensitivity of mammography. FINDINGS: There is no evidence of suspicious mass, calcification, or architectural distortion to sugg est malignancy in either breast. There has been no suspicious interval change. IMPRESSION: 1. No mammographic evidence of malignancy. 2. Recommend routine screening mammography in one year. BI-RADS Category 1: Negative Reviewed, dictated and finalized at location B.
== END 2023-11-18 14:04 ==
LOC: MICIMG 14:05
PROVIDERS: PCP Obstetrics & Gynecology; Visit Provider Obstetrics & Gynecology
DX: Z12.31 Encounter for screening mammogram for malignant neoplasm of breast (principal)
CPT/HCPCS: 77063; 77067

== ENCOUNTER 2024-01-19 02:09 | Day surgery (SDC) | payer BC, OTHER, SELFPAY ==
[2023-12-26 08:40] VITALS: BMI 23.1
[2024-01-19 08:24] VITALS: BP 125/52; PULSE 83; RESP 16; TEMP 36.1; O2SAT 100; BMI 22.4
[2024-01-19] MEDS: LACTATED RINGERS 1,000 ML 150 ML IV CONT (08:30)
--- NOTE | 2024-01-19 08:41 | WPDANESEPPF ---
Anes - Initial Pre Proc Eval Procedure: Operation Date: 01/19/24 09:30 Proposed Procedures p Colonoscopy - Cyrus Bartlett MD Date/Time: 01/19/24 08:41 Surgeon: Cyrus Bartlett MD Pre Op Diagnosis: Fam. Hx. colon CA Patient Data Age: 48 Gender: F Height: 1.63 m Weight: 59.4 kg Last Vital Signs Temp 96.9 F L 01/19/24 08:24 Pulse 83 01/19/24 08:24 Resp 16 01/19/24 08:24 BP 125/52 L 01/19/24 08:24 Pulse Ox 100 01/19/24 08:24 O2 Del Method Room Air 01/19/24 08:24 Allergies Allergy/AdvReac Type Severity Reaction Status Date / Time ampicillin Allergy Unknown Rash Verified 01/19/24 08:21 Home Medications Medication Instructions Recorded Confirmed Type multivitamin (Daily Multi-Vitamin 1 tablet PO DAILY 12/11/20 01/19/24 History tablet) vitamin B complex (B 1 tablet PO DAILY 12/11/20 01/19/24 History Complex-Vitamin B12 tablet) estradiol 0.05 mg/24 hr weekly 1 patch transdermal WEEKLY #12 ea 02/04/22 01/19/24 Rx transdermal patch Patient hx anesthesia problems: none Family hx anesthesia problems: none Results Review: All pre-operative results and documents have been reviewed as part of the pre-operative evaluation. [facility] Past Medical History Medical History (Updated 10/01/23 @ 10:53 by Fidelia Stafford APRN) Mass of left ovary Mass of right ovary Miscarriage Pseudophakia of both eyes Surgical History Surgical History (Updated 10/01/23 @ 10:07 by Macy Wade CMA) H/O eye surgery H/O total hysterectomy History of cryosurgery History of dilation and curettage History of mandibular surgery Hx of bilateral salpingo-oophorectomy 11/22/2020 [place] teeth extracted Family History Family History (Updated 10/01/23 @ 10:06 by Macy Wade CMA) Father Carcinoma of colon Mother Hypertension History of blood clots Cerebrovascular accident Grandparent Ovarian cancer Social History Social History (Updated 10/01/23 @ 10:08 by Macy Wade CMA) Smoking status: Never smoker Alcohol intake: current Drinks per week: 1 Substance use: never Do You Feel Safe in your Home?: Yes Lack of Transportation: No Lack of Food: Never True Current Housing: I Have Housing Concerned About Future Housing: No Difficulty Paying Gas/Electric Bills: No Difficulty Paying for Meds: No Currently Unemployed: No Education: Don't Know Difficulty w/ Childcare or Family Care: No Living arrangements: with family Additional living arrangements comments: Occupation/Education: occupation 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 Informed Consent: The patient's anesthetic plan and its attendant risks and benefits were discussed with the patient/family/POA. Questions were solicited and answers provided to the satisfaction of the patient/family/POA.
--- NOTE | 2024-01-19 09:23 | PM.HPGS ---
History of Present Illness History of Present Illness Consent: Risks, benefits, and alternatives have been discussed and questions answered. Patient agrees to proceed with procedure. Chief complaint: Fam. Hx. colon CA Narrative: Wanda Castro is a 48 year old female here for first colonoscopy, father had colon cancer Review of Systems Review of Systems: All systems reviewed & are unremarkable except as noted in HPI and below PMFSH Past Medical History Medical History (Updated 01/19/24 @ 09:24 by Cyrus Bartlett MD) Family history of colon cancer in father Mass of left ovary Mass of right ovary Miscarriage Pseudophakia of both eyes Surgical History Surgical History (Updated 10/01/23 @ 10:07 by Macy Wade CMA) H/O eye surgery H/O total hysterectomy History of cryosurgery History of dilation and curettage History of mandibular surgery Hx of bilateral salpingo-oophorectomy 11/22/2020 [place] teeth extracted Family History Family History (Updated 10/01/23 @ 10:06 by Macy Wade CMA) Father Carcinoma of colon Mother Hypertension History of blood clots Cerebrovascular accident Grandparent Ovarian cancer Social History Social History (Updated 10/01/23 @ 10:08 by Macy Wade CMA) Smoking status: Never smoker Alcohol intake: current Drinks per week: 1 Substance use: never Do You Feel Safe in your Home?: Yes Lack of Transportation: No Lack of Food: Never True Current Housing: I Have Housing Concerned About Future Housing: No Difficulty Paying Gas/Electric Bills: No Difficulty Paying for Meds: No Currently Unemployed: No Education: Don't Know Difficulty w/ Childcare or Family Care: No Living arrangements: with family Additional living arrangements comments: Occupation/Education: occupation 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 Spiritual care concerns: No Agree to blood products: Yes Meds Home Medications and Allergies Home Medications Medication Instructions Recorded Confirmed Type multivitamin (Daily Multi-Vitamin 1 tablet PO DAILY 12/11/20 01/19/24 History tablet) vitamin B complex (B 1 tablet PO DAILY 12/11/20 01/19/24 History Complex-Vitamin B12 tablet) estradiol 0.05 mg/24 hr weekly 1 patch transdermal WEEKLY #12 ea 02/04/22 01/19/24 Rx transdermal patch Allergies Allergy/AdvReac Type Severity Reaction Status Date / Time ampicillin Allergy Unknown Rash Verified 01/19/24 08:21 Vital Signs Vital Signs - 24 hr 01/19/24 08:24 Temperature 96.9 F L Pulse Rate 83 Respiratory Rate 16 Blood Pressure 125/52 L Pulse Oximetry 100 Oxygen Delivery Room Air Exam Const: General: comfortable and no acute distress HENMT: Face/Nose/Sinus: Normal nares present Eyes: General: appearance normal, both eyes and all related structures Neck: Neck: no JVD Resp: Auscultation: clear to auscultation bilaterally Cardio: Rate: regular rate Rhythm: regular rhythm GI: Inspection: non-distended GI Palp: Yes Soft to palpation Skin: General skin exam: normal color Neuro: General: gait normal Speech: normal speech Extrem: General: normal to inspection Psych: Mental Status: mental status grossly normal Assessment and Plan Assessment and plan (1) Family history of colon cancer in father: Code(s): Z80.0 - Family history of malignant neoplasm of digestive organs Status: Acute Assessment and Plan: colonoscopy
[2024-01-19 09:41] VITALS: BP 86/45; PULSE 71; RESP 19; O2SAT 99
[2024-01-19 09:51] VITALS: BP 105/61; PULSE 72; RESP 17; O2SAT 100
[2024-01-19 10:01] VITALS: BP 109/65; PULSE 71; RESP 12; O2SAT 100
== END 2024-01-19 10:10 | disposition home or self-care (01) ==
PROVIDERS: PCP Nurse Practitioner Family; Visit Provider Internal Medicine Gastroenterology
PROC: 0DJD8ZZ Inspection of Lower Intestinal Tract, Via Natural or Artificial Opening Endoscopic (ICD-10-PCS; CPT 45378; principal; 2024-01-19 09:30)
DX: Z12.11 Encounter for screening for malignant neoplasm of colon (principal); D12.2 Benign neoplasm of ascending colon; K64.8 Other hemorrhoids; Z98.890 Other specified postprocedural states; Z80.41 Family history of malignant neoplasm of ovary; Z80.0 Family history of malignant neoplasm of digestive organs; Z82.49 Family history of ischemic heart disease and other diseases of the circulatory system
CPT/HCPCS: 45385; 88305; J2704; J7120

== ENCOUNTER 2024-09-09 09:46 | Outpatient (CLI) | payer BC, OTHER, SELFPAY ==
--- NOTE | ~2024-09-09 | DEXA_ITS ---
Bone Density Report Name: RICHARD VOGEL Age: 48 Sex: Female Ethnicity: White Date of : 1975 Indication: postmenopausal; hysterectomy; Referring Provider: GUY BIRCH Study: Bone densitometry was performed. Exam Date: September 09, 2024 Accession number: [id number] Bone Density: Region BMD T-score Z-score Classification AP Spine(L1-L4) 0.898 -1.4 -0.8 Osteopenia Femoral Neck (Left) 0.705 -1.3 -0.8 Osteopenia Total Hip (Left) 0.854 -0.7 -0.4 Normal Femoral Neck (Right) 0.683 -1.5 -1.0 Osteopenia Total Hip (Right) 0.785 -1.3 -0.9 Osteopenia Total Hip Mean 0.819 -1.0 -0.7 Normal World Health Organization criteria for BMD impression classify patients as: Normal (T-score at or above -1.0), Osteopenia (T-score between -1.0 and -2.5), or Osteoporosis (T-score at or below -2.5). 10-year Fracture Risk(1): Major Osteoporotic Fracture 3.5% Hip Fracture 0.3% Reported Risk Factors: [place] (), Neck BMD=0.683, BMI=23.0 (1) FRAX(R) Version 3.08. Fracture probability calculated for an untreated patient. Fracture probability may be lower if the patient has received treatment. Clinical Information Provided by Patient: Has used the following medications: HRT (i.e. estrogen/hormone therapy), Vitamin D, Calcium Has the following medical conditions: Hysterectomy Patient maximum height was 65 Menopause Age: 44 No regular weight bearing exercise Drinks caffeinated beverages Onset of menses at age 15 Number of children 1 Impression: The patient has low bone mass, based on the Right Femoral Neck T-score. The patient has an estimated ten-year risk of hip fracture of 0.3% and an estimated ten-year risk of major fracture of 3.5%, based on the WHO FRAX algorithm. Discussion: BONE DENSITY IS LOW AT ONE OR MORE SKELETAL SITES. This patient's lowest T-score is low at one or more skeletal sites. It meets the World Health Organization's (WHO) criteria for “low bone mass” (T-score between -1.0 and -2.5). The patient's 10-year risk of fracture as calculated by FRAX is less than the threshold where pharmacological therapy is recommended by the National Osteoporosis Foundation (NOF). However, all treatment decisions require clinical judgment and consideration of individual patient factors, including patient preferences, comorbidities, previous drug use, risk factors not captured in the FRAX model (e.g., frailty, falls, vitamin D deficiency, increased bone turnover, interval significant decline in bone density) and possible under or overestimation of fracture risk by FRAX. The patient should follow a healthful lifestyle (good nutrition with adequate calcium and vitamin D, and appropriate weight-bearing exercise). Follow-Up: Consider repeating this study in 2 to 3 years to reassess this patient's status, or sooner if there is some new clinical indication. Reported by: JOSE on 09/09/2024 10:30:00 AM. Reviewed, dictated and finalized at location A.
--- OUTSIDE RECORDS SUMMARY | 2024-09-09 09:50 | XMS_ITS | Clinical Summary ---
Author Organization [facility] Address [address] [place] [id number] Care Team Providers Care Contact Center Rep Name Role Phone Unavailable Primary Care Provider Unavailabl e Social History Tobacco Use Types Packs/Day Years Used Date Smoking Tobacco: Never Assessed Comments Unknown Sex and Gender Information Value Date Recorded Sex Assigned at Not on file Legal Sex Female 7:43 PM CDT Gender Identity Not on file Sexual Orientation Not on file Plan of Treatment Health Maintenance Due Date Last Done Comments Cervical Cancer Screening Pa p Smear (Age 30 to 64) Every 3 Years 1977 Colorectal Cancer Screening Colonoscopy (10 Years) 1977 Annual Physical 1980 Hepatitis C 12/07/1995 DTaP, Tdap and Td Vaccines ( 1 - Tdap) 1996 Hepatitis B Vaccines (1 of 3 - 19+ 3-dose series) 1996 Cervical Cancer Screening Pa p with HPV Testing (Age 30 to 64) Every 5 Years 12/07/2007 Cervical Cancer Screening with HPV 12/07/2007 Mammogram Screening 2017 COVID-19 Vaccine (2023-2 5 season) 2023 Meningococcal B Vaccine Aged Out No l onger eligible based on patient's age to complete this topic Meningococcal Vaccine Aged Out No clarence bell eligible based on patient's age to complete this topic Pneumococcal Vaccine: Pediat rics (0 to 5 Years) and At-Risk Patients (6 to 49 Years) Aged Out No longer eligible b ased on patient's age to complete this topic RSV Immunizations Under 20 Months Aged Out No longer eligible based on patient's age to complete this topic
--- OUTSIDE RECORDS SUMMARY | 2024-09-09 09:50 | XMS_ITS | Encounter Summary ---
Author Organization [facility] Address 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
--- OUTSIDE RECORDS SUMMARY | 2024-09-09 09:50 | XMS_ITS | Clinical Summary ---
Author Organization [facility] Address [address] [place] [id number] Care Team Providers Care Correctional Program Specialist Name Role Phone Fidelia Stafford MANAGER SOURCING Primary Care Provider + Homer Bird MD Unavailable [phone] Allergies Active Allergy Reactions Criticality Noted Date Comments Ampicillin Rash Medium 12/11/2020 Medications multivitamin capsule Take 1 capsule by mouth daily Active estradioL (CLIMARA) 0.05 mg/[address] 1 patch on the skin once a week 4 patch 11 06/12/2023 Active Active Problems Problem Noted Date Diagnosed Date 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 Overview (01/04/2021): Added automatically from request for surgery [id number] Immunizations Immunization Administration Dates Next Due Influenza, Quadrivalent, Split, Intramuscular Tdap 09/24/2017 Surgical History Surgery Date Site/Laterality Comments OTHER SURGICAL HISTORY 04/28/1993 - 04/27/1994 Corrective Jaw Surgery OTHER SURGICAL HISTORY 04/28/1996 - 04/27/1997 Cervial Cryo OTHER SURGICAL HISTORY 04/28/2017 - 04/27/2018 Vision correction DILATION AND CURETTAGE OF UTERUS 04/28/2006 - 04/27/2007 Family History Medical History Relation Name Comments Colon cancer Father Ovarian cancer Maternal Grandmother Stroke Mother Anesthesia problems Neg Hx Relation Name Status Comments Father Maternal Grandmother Mother Social History Tobacco Use Types Packs/Day Years Used Date Smoking Tobacco: Never Smokeless Tobacco: Never Tobacco Cessation:Counseling Given: Not Answered AUDIT-C Answer Date Recorded Q1: How often do you have a drink containing alc ohol? Monthly or less 01/23/2021 Q2: How many drinks containi ng alcohol do you have on a typical day when you are drinking? 1 or 2 01/23/2021 Q3: How often do you have si x or more drinks on one occasion? Never 01/23/2021 Comments No Sex and Gender Information Value Date Recorded Sex Assigned at Not on file Legal Sex Female 11:28 AM CDT Gender Identity Not on file Sexual Orientation Not on file Obstetrics History Para Term AB IAB SAB Ectopic Multiple Livin g Live Births 2 1 1 1 1 Date Outcome GA Total Labor Labor/2nd/3rd Weight Sex Type Anes PTL Alcira A1 A5 Name Clin Term SAB Last Filed Vital Signs Vital Sign Reading Time Taken Comments Blood Pressure 109/72 01/06/2023 4:32 PM CDT Pulse 61 01/06/2023 4:32 PM CDT Temperature 36.7 C (98 F) 01/06/2023 4:32 PM CDT Respiratory Rate 16 01/06/2023 4:32 PM CDT Oxygen Saturation 99% 01/06/2023 4:32 PM CDT Inhaled Oxygen Concentration - - Weight 62.5 kg (137 lb 11.2 oz) 01/06/2023 4:32 PM CDT Height 166 cm (5' 5.35 ) 01/06/2023 4:32 PM CDT Body Mass Index 22.67 01/06/2023 4:32 PM CDT Plan of Treatment Health Maintenance Due Date Last Done Comments Breast Cancer Screening-Mammogram 1977 Cervical Cancer Screening 1977 Colon Cancer Screening-Colonoscopy 1977 Depression Screening 1977 Hepatitis C Screening 1977 Hepatitis B Screening 12/07/1995 Regular Well Visit/Exam 18-64 12/07/1995 Covid-19 Vaccine (2023-2 5 season) 2023 07/11/2020, 06/01/2020 Influenza Vaccine (Season Ended) 2024 05/17/2013 DTaP/Tdap/Td Vaccine (2 - Td or Tdap) 09/25/2027 09/24/2017 HPV Vaccines Aged Out No longer eligi ble based on patient's age to complete this topic Pneumococcal vaccine <65 Aged Out No longer eligible based on patient's age to complete this topic [facility] ANTHEM ACCESS CHOICE ANTHEM ACCESS CHOICE [employer] OPEN ACCESS Care Teams Correctional Program Specialist Relationship Specialty Start Date End Date Fidelia Stafford NP PCP - General Nurse Practitioner 11/28/20 Homer Bird MD [address] [facility] [address] [facility] [address] [place] [address] Referring Physician Obstetrics and Gynecology 11/28/20
--- OUTSIDE RECORDS SUMMARY | 2024-09-09 09:50 | XMS_ITS | Data Portability ---
Author Organization [facility] bulletn., Main Office Address [address] [place] [address] Assessment No assessment recorded. Plan of Treatment Reminders Order Date Submit Date Provider Last Modified By Organization Details Last Modified Time Details Appointments None recorded. Lab lipid panel, serum [address] Out[facility] Lab, [address] [place], [address], 3 08:55:29 TSH, serum, reflex free T4 2022 023 [email or web address] [facility] Outpatient Lab, [address] [place], [address], 3 15:06:46 CMP, serum or plasma [address] Out[facility] Lab, [address] [place], [address], 3 08:55:29 HbA1c (hemoglobin A1c), blood [address] Out[facility] Lab, [address] [place], [address], 3 08:55:29 CBC w/ auto diff [address] Out[facility] Lab, [address] [place], [address], 3 08:55:29 Referral gastroenter ologist referral - screening colonoscopy , after 12/06/22. Father +colon cancer age 63 yo. 2022 023 [email or web address] Rich Garg MD, [address], [address], [place], [address], 13:25:04 Procedures None recorded. Surgeries None recorded. Imaging None recorded. Medication Orders None recorded. Patient TargetsNo targets recorded. Patient InstructionsNo instructions recorded. 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 Father +colon cancer age 63 yo. Referring Physician: Fidelia Stafford, Family Medicine, Encounter Date: 10/04/2022 Results Created Date Observation Date Name Description Value Unit Range Abnormal Flag Note LastModifiedBy Organization Detail LastModifiedTime 12/03/1912/02/2022 CBC/C OMPLE TE BLD COUNT W/DIF F white blood cells 5.7 x10'3 /uL 4.2-10 .8 Not Available [facility] (Lab) [address] [place], [address], 12/02/2022 11:17:35 12/03/19 23 12/02/2022 CBC/C OMPLE TE BLD COUNT W/DIF F red blood cells 4.25 x10'6 /uL 3.80-5 .20 Not Available [facility] (Lab) [address] [place], [address], 12/02/2022 11:17:35 12/03/19 23 12/02/2022 CBC/C OMPLE TE BLD COUNT W/DIF F hemoglobin 13.0 g/dL 12.0-1 5.6 Not Available [facility] (Lab) [address] [place], [address], 12/02/2022 11:17:35 12/03/19 23 12/02/2022 CBC/C OMPLE TE BLD COUNT W/DIF F hematocrit 38.0 % 35.7-4 5.7 Not Available [facility] (Lab) [address] [place], [address], 12/02/2022 11:17:35 12/03/19 23 12/02/2022 CBC/C OMPLE TE BLD COUNT W/DIF F mean red cell volume 89.4 fL 82.0-9 9.0 Not Available [facility] (Lab) [address] [place], [address], 12/02/2022 11:17:35 12/03/19 23 12/02/2022 CBC/C OMPLE TE BLD COUNT W/DIF F mean red cell hemoglobin 30.6 pg 27.0-3 3.0 Not Available [facility] (Lab) [address] [place], [address], 12/02/2022 11:17:35 12/03/19 23 12/02/2022 CBC/C OMPLE TE BLD COUNT W/DIF F mean RBC HGB concentratio n 34.2 g/dL 31.0-3 6.0 Not Available [facility] (Lab) [address] [place], [address], 12/02/2022 11:17:35 12/03/19 23 12/02/2022 CBC/C OMPLE TE BLD COUNT W/DIF F red cell distribution width 11.4 % 11.8-1 5.5 low Not Available [facility] (Lab) [address] [place], [address], 12/02/2022 11:17:35 12/03/19 23 12/02/2022 CBC/C OMPLE TE BLD COUNT W/DIF F platelets 238 x10'3 /uL 150-40 0 Not Available [facility] (Lab) [address] [place], [address], 12/02/2022 11:17:35 12/03/19 23 12/02/2022 CBC/C OMPLE TE BLD COUNT W/DIF F mean platelet volume 9.6 fL 9.0-12 .4 Not Available [facility] (Lab) [address] [place], [address], 12/02/2022 11:17:35 12/03/19 23 12/02/2022 CBC/C OMPLE TE BLD COUNT W/DIF F neutrophils 60.4 % 39.0-7 2.0 Not Available [facility] (Lab) [address] [place], [address], 12/02/2022 11:17:35 12/03/19 23 12/02/2022 CBC/C OMPLE TE BLD COUNT W/DIF F lymphocytes 32.5 % 16.0-4 7.0 Not Available [facility] (Lab) [address] [place], [address], 12/02/2022 11:17:35 12/03/19 23 12/02/2022 CBC/C OMPLE TE BLD COUNT W/DIF F monocytes 5.6 % 5.0-12 .0 Not Available [facility] (Lab) [address] [place], [address], 12/02/2022 11:17:35 12/03/19 23 12/02/2022 CBC/C OMPLE TE BLD COUNT W/DIF F eosinophils 0.7 % 1.0-7. 0 low Not Available [facility] (Lab) [address] [place], [address], 12/02/2022 11:17:35 12/03/19 23 12/02/2022 CBC/C OMPLE TE BLD COUNT W/DIF F basophils 0.4 % 0.0-2. 0 Not Available [facility] (Lab) [address] [place], [address], 12/02/2022 11:17:35 12/03/19 23 12/02/2022 CBC/C OMPLE TE BLD COUNT W/DIF F immature granulocytes 0.4 % 0.00-0 .50 Not Available [facility] (Lab) [address] [place], [address], 12/02/2022 11:17:35 12/03/19 23 12/02/2022 CBC/C OMPLE TE BLD COUNT W/DIF F neutrophils, absolute count 3.43 x10'3 /uL 1.5-8. 0 Not Available [facility] (Lab) [address] [place], [address], 12/02/2022 11:17:35 12/03/19 23 12/02/2022 CBC/C OMPLE TE BLD COUNT W/DIF F lymphocytes, absolute count 1.84 x10'3 /uL 1.07-3 .43 Not Available [facility] (Lab) [address] [place], [address], 12/02/2022 11:17:35 12/03/19 23 12/02/2022 CBC/C OMPLE TE BLD COUNT W/DIF F monocytes, absolute count 0.32 x10'3 /uL 0.29-0 .99 Not Available [facility] (Lab) [address] [place], [address], 12/02/2022 11:17:35 12/03/19 23 12/02/2022 CBC/C OMPLE TE BLD COUNT W/DIF F eosinophils, absolute count 0.04 x10'3 /uL 0.02-0 .53 Not Available [facility] (Lab) [address] [place], [address], 12/02/2022 11:17:35 12/03/19 23 12/02/2022 CBC/C OMPLE TE BLD COUNT W/DIF F basophils, absolute count 0.02 x10'3 /uL 0.01-0 .08 Not Available [facility] (Lab) [address] [place], [address], 12/02/2022 11:17:35 12/03/19 23 12/02/2022 CBC/C OMPLE TE BLD COUNT W/DIF F immature granulocytes ,absolute 0.02 x10'3 /uL 0.00-0 .05 Not Available [facility] (Lab) [address] [place], [address], 12/02/2022 11:17:35 12/03/19 23 12/02/2022 CBC/C OMPLE TE BLD COUNT W/DIF F nucleated red blood cells 0.0 % -0 Not Available [facility] (Lab) [address] [facility] [place], [address], 12/02/2022 11:17:35 12/03/19 23 12/02/2022 CBC/C OMPLE TE BLD COUNT W/DIF F NRBC# 0.00 x10'3 /uL Not Available [facility] (Lab) [address] [place], [address], 12/02/2022 11:17:35 12/03/19 23 12/02/2022 COMPR EHENS STORMY METAB OLIC PANEL sodium 139 mmol/ L 137-14 5 Not Available [facility] (Lab) [address] [place], [address], 12/02/2022 11:49:35 12/03/19 23 12/02/2022 COMPR EHENS STORMY METAB OLIC PANEL potassium 4.2 mmol/ L 3.5-5. 1 Not Available [facility] (Lab) [address] [place], [address], 12/02/2022 11:49:35 12/03/19 23 12/02/2022 COMPR EHENS STORMY METAB OLIC PANEL chloride 104 mmol/ L 98-107 Not Available [facility] (Lab) [address] [place], [address], 12/02/2022 11:49:35 12/03/19 23 12/02/2022 COMPR EHENS STORMY METAB OLIC PANEL carbon dioxide 28 mmol/ L 22-30 Not Available [facility] (Lab) [address] [place], [address], 12/02/2022 11:49:35 12/03/19 23 12/02/2022 COMPR EHENS STORMY METAB OLIC PANEL anion gap 11.2 mmol/ L 14-22 low Not Available [facility] (Lab) [address] [place], [address], 12/02/2022 11:49:35 12/03/19 23 12/02/2022 COMPR EHENS STORMY METAB OLIC PANEL glucose 93 mg/dL 70-99 Not Available [facility] (Lab) [address] [place], [address], 12/02/2022 11:49:35 12/03/19 23 12/02/2022 COMPR EHENS STORMY METAB OLIC PANEL BUN 11 mg/dL 8-19 Not Available [facility] (Lab) [address] [place], [address], 12/02/2022 11:49:35 12/03/19 23 12/02/2022 COMPR EHENS STORMY METAB OLIC PANEL creatinine 0.74 mg/dL 0.66-1 .25 Not Available [facility] (Lab) [address] [place], [address], 12/02/2022 11:49:35 12/03/19 23 12/02/2022 COMPR EHENS STORMY METAB OLIC PANEL GFR >60 Refer ence Range : [place] ge GFR Healt hy Adult : >60 mL/mi n/1.7 3 m2 Chron ic Kidne y Disea se: 15-60 mL/mi n/1.7 3 m2 Kidne y Failu re: <15/m L/min /1.73 m2 www.n iddk. nih.g ov The MDRD study equat ion has not been valid ated in child dilip <18 years of age; pregn ant women ; the elder ly >85 years of age; or in some racia l or ethni c subgr oups, such as Hispa nics. Outsi de the valid ated go eters , estim ated GFR is less accur ate, requi ring clini brenda judgm ent on a case- by-ca se basis . Clini brenda inter preta tion for other races and ages must be made by the clini mahesh. The MDRD study equat ion has not been valid ated for the evalu ation of serum creat inine relat ed to nutri chalo l statu s or medic ation usage . For perso ns <18 years of age, a pedia tric GFR calcu lator is avail able on the [facility] websi te: https ://ww w.kid yosef.o rg/pr ofess ional s/kdo qi/gf r_cal culat or Not Available [facility] (Lab) [address] [place], [address], 12/02/2022 11:49:35 12/03/19 23 12/02/2022 COMPR EHENS STORMY METAB OLIC PANEL alkaline phosphatase 48 U/L 38-126 Not Available [facility] (Lab) [address] [place], [address], 12/02/2022 11:49:35 12/03/19 23 12/02/2022 COMPR EHENS STORMY METAB OLIC PANEL alanine aminotransfe rase 23 U/L 0-35 Not Available [facility] (Lab) [address] [place], [address], 12/02/2022 11:49:35 12/03/19 23 12/02/2022 COMPR EHENS STORMY METAB OLIC PANEL aspartate aminotransfe rase 26 U/L 15-37 Not Available [facility] (Lab) [address] [place], [address], 12/02/2022 11:49:35 12/03/19 23 12/02/2022 COMPR EHENS STORMY METAB OLIC PANEL bilirubin, total 0.50 mg/dL 0.20-1 .30 Not Available [facility] (Lab) [address] [place], [address], 12/02/2022 11:49:35 12/03/19 23 12/02/2022 COMPR EHENS STORMY METAB OLIC PANEL calcium 9.4 mg/dL 8.4-10 .2 Not Available [facility] (Lab) [address] [place], [address], 12/02/2022 11:49:35 12/03/19 23 12/02/2022 COMPR EHENS STORMY METAB OLIC PANEL total protein 7.4 g/dL 6.3-8. 2 Not Available [facility] (Lab) [address] [place], [address], 12/02/2022 11:49:35 12/03/19 23 12/02/2022 COMPR EHENS STORMY METAB OLIC PANEL albumin 4.6 g/dL 3.4-5. 0 Not Available [facility] (Lab) [address] [place], [address], 12/02/2022 11:49:35 12/03/19 23 12/02/2022 COMPR EHENS STORMY METAB OLIC PANEL globulin 2.8 g/dL 2.6-4. 2 Not Available [facility] (Lab) [address] [place], [address], 12/02/2022 11:49:35 12/03/19 23 12/02/2022 COMPR EHENS STORMY METAB OLIC PANEL A/G ratio 1.6 ratio 1.0-2. 0 Not Available [facility] (Lab) [address] [place], [address], 12/02/2022 11:49:35 12/03/19 23 12/02/2022 LIPID PANEL cholesterol 252 mg/dL 140-19 9 high NIH MONICA NSUS RECOM MENDA TION FOR VANI STERO L: ADULT CHILD LOW RISK: <200 <170 BORDE RLINE : <200- 239 ----- HIGH RISK: >240 >200 Not Available [facility] (Lab) [address] [place], [address], 12/02/2022 11:49:40 12/03/1912/02/2022 LIPID PANEL triglyceride s 77 mg/dL 0-150 NIH MONICA NSUS REPOR T RECOM MENDA TION FOR TRIGL YCERI JOSEPHINE: ADULT CHILD LOW RISK: <150 ----- BODER LINE: 150-1 99 ----- HIGH RISK: >200 ----- Not Available [facility] (Lab) [address] [place], [address], 12/02/2022 11:49:40 12/03/1912/02/2022 LIPID PANEL HDL cholesterol 77 mg/dL 40- Not Available [facility] (Lab) [address] [place], [address], 12/02/2022 11:49:40 12/03/19 23 12/02/2022 LIPID PANEL LDL cholesterol, calculated 160 mg/dL 0-130 high NIH MONICA NSUS REPOR T RECOM MENDA TIONS FOR LDL: ADULT CHILD LOW RISK <130 <110 (OPTI MAL LDL) <100 ----- BORDE RLINE : 130-1 59 ----- HIGH RISK: >160 >130 A TRIGL YCERI DE RESUL T >400 INVAL IDATE S THE CALCU LATIO N FOR LDL FRACT IONAT ION - THE LDL RESUL T WILL NOT BE REPOR ANN. Not Available [facility] (Lab) [address] [place], [address], 12/02/2022 11:49:40 12/03/1912/02/2022 TSH thyroid-stim ulating hormone 2.330 uIU/m L 0.465- 4.680 Not Available [facility] (Lab) [address] [place], [address], 12/02/2022 12:13:55 12/03/1912/02/2022 HEMOG LOBIN A1C HA1C 4.9 % 4.0-6. 0 Diabe larry Scree koko Crite roseann: <5.7% Consi stent with absen ce of diabe larry 5.7-6 .4% Consi stent with incre ased risk for diabe larry (pred iabet es) >OR=6 .5% Consi stent with diabe larry REFER ENCE: Diabe larry Care 2016, 39(Ma ppl.1 ):s13 -s22 Not Available [facility] ([facility]) [address] [place], [address], 12/02/2022 14:42:14 11/17/19 21 11/16/2020 US, abdom en + pelvi s No observ ation record ed. MIGRATION. [facility] [address], [place], [address], 06/26/2022 20:08:56 11/17/19 21 11/16/2020 US, abdom en + pelvi s No observ ation record ed. MIGRATION. [facility] [address], [place], [address], 06/26/2022 20:08:56 11/22/19 21 11/21/2020 CT, abdom en + pelvi s, w/ contr ast No observ ation record ed. MIGRATION. [facility] (Imaging) [address] [place] [address], [address], 06/26/2022 20:08:56 11/22/19 21 11/21/2020 US, abdom en + pelvi s No observ ation record ed. MIGRATION. [facility] (Imaging) [address] [place] [address], [address], 06/26/2022 20:08:56 03/15/20 21 03/14/2021 MAMMO , jessica sutherland, bilat eral No observ ation record ed. MIGRATION. [facility] [address], [place], [address], 06/26/2022 20:08:56 12/27/19 22 12/25/2021 DEXA No observ ation record ed. [id number] [facility] [address], [place], [address], 06/26/2022 20:08:56 07/05/19 23 07/04/2022 MAMMO , scree koko, bilat eral No observ ation record ed. [email or web address] [facility] [address], [place], [address], 07/04/2022 18:30:08 Result Notes None recorded. Problems Name Problem SNOMED Code Status Onset Date Resolution Date Notes Provider Name and Address Organization Details Recorded Time Bursitis of hip 45564820 Active 023 Fidelia Stafford, PABLO [address] [facility], [facility] [address], [place], [address] , [facility] [employer] 16:33:49 Problem Notes None recorded. Procedures Surgical History Date Name Laterality Status Provider Name and Address Organization Details Recorded Time 12/26/19 22 Most Recent Bone Density completed Not Available [facility] 06/26/2022 20:06:41 01/27/20 21 Hysterectomy completed Not Available [facility] 023 20:06:42 11/23/19 21 excision of bilateral ovaries completed Not Available [facility] 06/26/2022 20:06:42 Imaging Results Imaging Date Name Status LastModified by Organiz atformerly [facility] Details LastModified Time 11/16/2020 US, abdomen + pelvis completed [id number] [facility] [address], [place], [address], 06/26/2022 20:08:56 11/16/2020 US, abdomen + pelvis completed [id number] [facility] [address], [place], [address], 06/26/2022 20:08:56 11/21/2020 CT, abdomen + pelvis, w/ contrast completed [id number] [facility] (Imaging) [address] [facility] [address], [place], [address], 06/26/2022 20:08:56 11/21/2020 US, abdomen + pelvis completed [id number] [facility] (Imaging) [address] [facility] [address], [place], [address], 06/26/2022 20:08:56 03/14/2021 MAMMO, screening, bilateral completed [id number] [facility] [address], [place], [address], 06/26/2022 20:08:56 12/25/2021 DEXA completed [id number] [facility] [address], [place], [address], 06/26/2022 20:08:56 07/04/2022 MAMMO, screening, bilateral completed [email or web address] [facility] [address], [place], [address], 07/04/2022 18:30:08 Procedure Notes None recorded. Medical Equipment None Reported. Allergies Allergen ID Allergen Name Allergen Category Reaction Reaction Severity Criticality Documentation Date Start Date Code Code System Note Provider Name and Address Organization Details Recorded Time 40978 ampicilli n medicatio n rash mild Not available 06/26/2022 733 RxNorm Not Available [facility] 20:08:54 Medications Name Sig Start Date Stop Date Status Note LastModified by Organization Details LastModified Time polyethylen e glycol 3350 17 gram oral powder packet TAKE 1 PACKET BY MOUTH TWICE DAILY FOR 7 DAYS 10/03 completed Not Available Not Available Not Available hydrocodone 5 mg-acetamin ophen 325 mg tablet TAKE 1 TABLET BY MOUTH EVERY 3 HOURS NEEDED FOR PAIN 10/03 completed Not Available Not Available Not Available estradiol 0.05 mg/24 hr weekly transdermal patch APPLY 1 PATCH TOPICALLY TO THE SKIN 1 TIME A WEEK active Not Available Not Available No t Available acetaminoph en 500 mg tablet TAKE 2 TABLETS BY MOUTH EVERY 6 HOURS 10/03 completed Not Available Not Available Not Available ketorolac 10 mg tablet TAKE 1 TABLET BY MOUTH EVERY 6 HOURS FOR 5 DAYS NEEDED FOR PAIN 10/03 completed Not Available Not Available Not Available ibuprofen 600 mg tablet 10/03 completed Not Available Not Available Not Available oxycodone 5 mg tablet 10/03 completed Not Available Not Available Not Available multivitami n 2021 active Not Available Not Available Not Avai lable Durezol 0.05 % eye drops 11/11 completed Not Available Not Available Not Available B12 2020 active Not Available Not Available Not Avai lable Ilevro 0.3 % eye drops,suspe nsion 09/24 completed Not Available Not Available Not Available ID NOW COVID-19 Test Kit TEST DIRECTED TODAY 10/03 completed Not Available Not Available Not Available Vitals Date Recorded Body mass index (BMI) Body height Oxygen saturation Oxygen saturation in Arterial blood by Pulse oximetry Heart rate Body temperature Body weight Systolic blood pressure Diastolic blood pressure Provider Name and Address Organization Details Last Updated DateTime 1 22.5 kg/m2 162.56 cm 98 % 98 % 71 /min 98.3 [degF] 56203.3 g 120 mm[Hg] 60 mm[Hg] Not Available [facility] 3 20:07:23 Date Recorded Body mass index (BMI) Body height Oxygen saturation Oxygen saturation in Arterial blood by Pulse oximetry Heart rate Body temperature Body weight Systolic blood pressure Diastolic blood pressure Provider Name and Address Organization Details Last Updated DateTime 2 22.4 kg/m2 162.56 cm 98 % 98 % 64 /min 97.7 [degF] 53388.4 6 g 98 mm[Hg] 78 mm[Hg] Not Available [facility] 3 20:07:23 Date Recorded Body weight Body mass index (BMI) Body height Body temperature Heart rate Respiratory rate Oxygen saturation Oxygen saturation in Arterial blood by Pulse oximetry Pain severity - 0-10 verbal numeric rating [Score] - Reported Systolic blood pressure Diastolic blood pressure Provider Name and Address Organization Details Last Updated DateTime 3 67210.9 5 g 23.6 kg/m2 162.56 cm 97.5 [degF] 68 /min 16 /min 97 % 97 % 0 110 mm[Hg] 72 mm[Hg] Fidelia Adames RN [facility] [employer] [facility] 16:05:02 Social History Question Answer Notes LastModified by Organizat ion Details LastModified Time Tobacco Smoking Status Never Smoker Patrizia swann, [facility] [employer] [facility] 10/04/2022 15:56:31 What Is Your Level Of Caffeine Consumption? Moderate [id number] Information not available 06/26/2022 How Much Tobacco Do You Chew? None [id number] Information not available 06/26/2022 In The 14 Days Before Symptom Onset, Have You Had Close Contact With A Laboratory-confir med COVID-19 While That Case Was Ill? No Information not available 10/04/2022 In The 14 Days Before Symptom Onset, Have You Had Close Contact With A Person Who Is Under Investigation For COVID-19 While That Person Was Ill? No Information not available 10/04/2022 What Type Of Diet Are You Following? REGULAR [id number] Information not available 06/26/2022 Which Illicit Or Recreational Drugs Have You Used? None Information not available 10/04/2022 Have There Been Any Changes To Your Family Or Social Situation? No Information no t available 10/04/2022 Do You Use Insect Repellent Routinely? Yes Information not available 10/04/2022 Where Do You Live? [facility] Information not available 10/04/2022 How Many Children Do You Have? 0 Information not available 10/04/2022 Do You Have Any Pets? Yes Information not available 10/04/2022 What Is Your Relationship Status? Information not available 10/04/2022 Do You Use Your Seat Belt Or Car Seat Routinely? Yes Information not available 10/04/2022 Do You Have Smoke And Carbon Monoxide Detectors In Your Home? Yes Information not available 10/04/2022 Are There Any Smokers In Your House? No Information not available 10/04/2022 Do You Participate In Social Media? Yes Information not available 10/04/2022 Do You Use Sunscreen Routinely? Yes Information not available 10/04/2022 Have You Recently Traveled Abroad? No Information not available 10/04/2022 Sex: Female Functional Status Question Answer Note LastModified by Organizat ion Details LastModified Time What is your level of alcohol consumption? None [id number] Information not available 06/26/2022 Do you or have you ever used smokeless tobacco? 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 Never used electronic cigarettes Information not available 10/04/2022 What is your exercise level? Moderate [id number] Information not available 06/26/2022 Mental Status Question Answer Note LastModified by Organization D etails LastModified Time Do you feel stressed (tense, restless, nervous, or anxious, or unable to sleep at night)? [id number] Information not available 10/04/2022 Family History Relationship Description Onset Age of this Age Resolved Age Notes LastModified by Organization Details LastModified Time Father Family history of cancer of colon 63 [email or web address] Not available 2022 16:32:38 Maternal Grandmother Malignant neoplasm of ovary Not available 2022 15:56:29 Unspecified Relation Hypertensive disorder [id number] Not available 06/26/2022 20:06:43 Medical History Condition Response BLINDNESS N RHEUMATIC FEVER N BLADDER PROBLEMS N KIDNEY STONES N MRSA N OTHER # 1 N POLIO N LUNG DISEASE/DISORDER N HISTORY OF DRUG ABUSE N RADIATION / CHEMOTHERAPY N COPD N Other # 2 N BLOOD DISEASES N SURGERY N EAR OR HEARING PROBLEMS N MUMPS N SHINGLES N BOWEL PROBLEMS N FEMALE PROBLEMS / INFECTIONS N DEPRESSION (INCLUDING POST ) N STROKE/TIA N THYROID DISEASE N ULCERS N BENIGN PROSTATIC HYPERPLASIA N MEASLES N CERVICALGIA N HYPOTENSION N TB SKIN TEST N MYOCARDIAL INFARCTION N PARAPELGIA N OBESITY N GERD/NAUSEA N ANEURYSM N URINARY/BLADDER/KIDNEY PROBLEMS N CORONARY ARTERY DISEASE (CAD) N MENIERE'S DISEASE N ADDICTION CONCERNS N ENDOMETRIOSIS N USE OF BLOOD THINNERS N SKIN PROBLEMS N EMPHYSEMA N GASTROINTESTINAL DISORDER N MUSCLE,JOINT OR BONE PROBLEMS N GASTROINTESTINAL BLEEDING N BLOOD CLOTS N ASTHMA N CATARACTS N ERECTILE DYSFUNCTION N GI PROBLEMS N CHF N Low Testosterone N NEUROPATHY N INFERTILITY N AIDS/HIV N FRACTURES N CHEMOTHERAPY / RADIATION N VISION/EYE PROBLEMS N LIVER DISEASE N MALE HYPOGONADISM N HYPERTENSION N TOURETTE'S N ANXIETY DISORDER N BLOOD TRANSFUSION N ANEMIA/BLOOD DISORDER N CHRONIC EAR INFECTIONS N BRONCHITIS N TUBERCULOSIS N GLAUCOMA N FOOT PROBLEM N DIVERTICULITIS N CHICKENPOX N SLEEP APNEA N ALLERGIES/HAYFEVER N [id number]|2024-09-09 09:50:00|2024-09-09 09:49:00|XMS_ITS|BKG DACIERRAON|External Medical Summaries|[id number]|" Referral Summary Created on: September 09, 2024 Wanda Castro : 1975 Sex: Female Author Organization [facility] Address [address] [place] [id number] Care Team Providers Care Taker Away Name Role Phone Fidelia Stafford CELL LEAD Primary Care Provider + Homer Bird MD Unavailable [phone] Allergies Active Allergy Reactions Criticality Noted Date [...] (01/04/2021): Added automatically from request for surgery [id number] Immunizations Immunization Administration Dates Next Due Influenza, Quadrivalent, Split, Intramuscular Tdap 09/24/2017 Social History Tobacco Use Types Packs/Day Years [...] on file Sexual Orientation Not on file Last Filed Vital Signs Vital Sign Reading [...] 01/06/2023 4:32 PM CDT Plan of Treatment Not on file Insurance [facility] OPEN ACCESS ANTHEM ACCESS CHOICE ANTHEM ACCESS CHOICE [employer] OPEN ACCESS Care Teams Taker Away Relationship Specialty Start Date End Date Fidelia Stafford NP PCP - General Nurse Practitioner 11/28/20 Homer Bird MD [address] [facility] [address] [place] [address] Referring Physician Obstetrics and Gynecology 11/28/20 "
--- OUTSIDE RECORDS SUMMARY | 2024-09-09 09:50 | XMS_ITS | Encounter Summary ---
Author Organization [facility] Address 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 Gender Identity Not on file Sexual Orientation Not on file documented as of this encounter Plan of Treatment Not on file documented as of this encounter Procedures Procedure Name Priority Date/Time Associated Diagnosis Comments US OB LTD 1 OR MORE FETUSES Timed Study 03/18/2008 2:10 PM SUPERVISOR CRACK OFF documented in this encounter Results * US OB LTD 1 OR MORE FETUSES (03/18/2008 2:10 PM SUPERVISOR CRACK OFF) Anatomical Region Laterality Modality Pelvis Other Narrative 03/18/2008 2:10 PM SUPERVISOR CRACK OFF Results in [employer] Procedure Note 11/03/2008 Results in [facility] [employer] Mireya Noriega MD US ORDERABLES Final Result documented in this encounter Visit Diagnoses Diagnosis Other known or suspected abnormality, not elsewhere classified, affecting management of mother, antepartum condition or complication documented in this encounter
--- OUTSIDE RECORDS SUMMARY | 2024-09-09 09:50 | XMS_ITS | Clinical Summary ---
Author Organization [facility] Address [address] [place] [address] Phone Care Team Providers Care Bed Manager Name Role Phone Unavailable Primary Care Provider Unavailabl e Social History Tobacco Use Types Packs/Day Years Used Date Smoking Tobacco: Never Assessed Comments Unknown Sex and Gender Information Value Date Recorded Sex Assigned at Not on file Legal Sex Female 5:39 AM [employer]RECTION [employer] Gender Identity Not on file Sexual Orientation Not on file Plan of Treatment Health Maintenance Due Date Last Done Comments DTAP/TDAP/TD VACCINES (1 - Tdap) 1996 HEPATITIS B VACCINES (1 of 3 - 19+ 3-dose series) 1996 HPV/Cotest (21-29) 1998 CERVICAL CANCER SCREENING 12/07/2007 HPV/Cotest (30-65) 12/07/2007 PAP SMEAR 12/07/2007 BREAST CANCER SCREENING 2017 COLORECTAL SCREENING 2022 Colorectal Cancer Screening 2022 FIT-DNA Q 3 years 2022 FIT/FOBT Q 1 year 2022 Flex Sig/CT Colonography Q 5 years 2022 INFLUENZA VACCINE (#1) 2023 HPV VACCINES Aged Out No longer eligi ble based on patient's age to complete this topic Insurance [employer] OPEN ACCESS HMO [facility] [id number]
== END 2024-09-09 09:47 | disposition home or self-care (01) ==
LOC: ANHIMG 09:48
PROVIDERS: PCP Nurse Practitioner Family; Visit Provider Nurse Practitioner Obstetrics & Gynecology
DX: M85.89 Other specified disorders of bone density and structure, multiple sites (principal); Z78.0 Asymptomatic menopausal state
CPT/HCPCS: 77080

== ENCOUNTER 2024-11-30 16:22 | Outpatient (CLI) | payer BC, OTHER, SELFPAY ==
--- NOTE | ~2024-11-30 | MM_ITS ---
EXAMINATION: MM screening amrita BI w anthony HISTORY: Screening TECHNIQUE: Craniocaudal and mediolateral oblique 3-D tomosynthesis images were obtained and synthetic 2-D images were generated. CAD analysis was submitted and interpreted. COMPARISON: Comparison to multiple prior studies sequentially, with oldest reviewed study dated 2018. BREAST PARENCHYMAL COMPOSITION: The breasts are extremely dense, which lowers the sensitivity of mamm ography. FINDINGS: There is no evidence of suspicious mass, calcification, or architectural distortion to sug gest malignancy in either breast. IMPRESSION: 1. No mammographic evidence of malignancy. 2. Recommend routine screening mammography in one year. BI-RADS Category 1: Negative Reviewed, dictated and finalized at location B.
== END 2024-11-30 16:23 | disposition home or self-care (01) ==
LOC: MICIMG 16:23
PROVIDERS: PCP Nurse Practitioner Family; Visit Provider Nurse Practitioner Obstetrics & Gynecology
DX: Z12.31 Encounter for screening mammogram for malignant neoplasm of breast (principal)
CPT/HCPCS: 77063; 77067